=== PATIENT | male | born 1945 | race Caucasian/White ===

== ENCOUNTER 2016-11-14 05:56 | Inpatient (IN) | payer MEDICARE, OTHER ==
[2016-11-14] VITALS (13 sets, daily range): BP systolic 138–157; BP diastolic 82–100; PULSE 88–98; RESP 16–32; O2SAT 91–96
[~2016-11-14] VITALS: Ht 177.8 cm; Wt 107.9 kg
[~2016-11-14 05:56] MED LIST: CA C1TAB28 PO; CALC-27 PO; COCO1000 PO; FLAX100010 PO; MULT-36 PO; OMEG1CAP56 PO; UBID100T7 PO; VITA1CAP PO; VITA400C64 PO
--- NOTE | 2016-11-14 06:18 | ED.REPORT ---
HPI-General Illness Date of Service Nov 14, 2016 ED Provider: Tracy Rodrigez MD The patient is a 71 year old male with no pertinent medical history, who presents to the emergency department complaining of a cough that began 5 days ago. His cough has been "dry." He has also experienced shortness of breath, wheezing, and orthopnea (x3-4 days). He has been unable to sleep at night due to his breathing and needed to sleep upright last night. He has noticed exertional dyspnea over the last few weeks. He denies fever, chills, chest pain or lower extremity swelling. Nursing Notes Stated Complaint: COLD Chief Complaint: Respiratory Complaints Nursing Notes Reviewed: Yes Allergies: Coded Allergies: No Known Allergies (Unverified , 11/14/16) Scheduled Biotin (Biotin) 10 Mg Tablet 10 MG PO DAILY Cholecalciferol (Vitamin D3) (Vitamin D3) 3,000 Unit Tablet 3,000 UNIT PO DAILY Multivitamin (Multivitamins) 1 Each Capsule 1 EACH PO DAILY [place]-3 Fatty Acids/Fish Oil ([place] 3 1,000 mg Softgel) 1 Each Capsule 1 EACH PO DAILY Ubidecarenone (Coenzyme Q10) 100 Mg Tablet 100 MG PO DAILY Vitamin E (Dl,Tocopheryl Acet) (Vitamin E) 1,000 Unit Capsule 1,000 UNIT PO DAILY General Time Seen by MD: 06:12 Chief Complaint Cough Hx Obtained From: Patient Arrived By: Walk-in Sudden in Onset?: No Onset Occurred: 5 days ago Symptom Duration: Since onset Severity: Current: No pain currently Severity: Maximum: No pain Recent Healthcare: No recent doctor visit, No recent hospitalization Similar Sx Previous: No Past Medical History Past Medical History Denies Family History Noncontributory Smoking History Former Smoker Social History Other Social History: Good social support, , Local resident Ambulatory Status Independent Review of Systems Full Review of Systems Constitutional: Denies: Chills, Fever Respiratory: Reports: Non-productive cough, Shortness of breath, Wheezing Cardiovascular: Reports: Orthopnea, Denies: Chest pain Musculoskeletal: Denies: Extremity swelling Complete sys rev & neg: except as marked. Physical Exam Vital Signs Vital Signs Date Time Temp Pulse Resp B/P Pulse Ox O2 Delivery O2 Flow Rate FiO2 11/14/16 10:04 94 31 144/88 94 Room Air 11/14/16 09:32 93 22 139/82 94 Room Air 11/14/16 08:27 94 32 145/86 95 Room Air 11/14/16 08:15 97 93 Room Air 11/14/16 08:10 92 27 91 Room Air 11/14/16 07:19 93 16 92 11/14/16 06:01 36.2 96 20 156/100 96 Room Air Initial VS: Reviewed Head / Eyes: Atraumatic, Normocephalic, PERRL ENT: Mucous membranes moist, Conjunctiva normal, No scleral icterus Neck: Supple, Non-tender, Full range of motion Abdomen / GI: Soft, Non-tender, No guarding, No rebound, No distention Lymphatic: No lymphadenopathy Extremities: Vascular intact, Neuro intact, No tenderness Skin: Warm, Dry, No cyanosis Neurologic: Alert, Oriented, Nonfocal Psychiatric: Mood/affect normal, Behavior normal, Normal thought content General/Constitutional: Awake, Alert, Cooperative Respiratory / Chest: Breath sounds = bilat, No rales, No rhonchi Audible wheezing. Diffuse wheezing throughout, more prominent in his upper lung garcia. Cardiovascular: Heart rate NL, Regular rhythm Heart Sounds / Murmur: Positive: Systolic murmur present.. (IV/) Upper Ext Edema: Positive: Bilateral 1+ Interpretation & Diagnostics Lab Results Interpretation Result Diagram: 11/14/16 0720 11/14/16 0720 Test 11/14/16 07:20 11/14/16 09:20 White Blood Count 6.3th/mm3 (3.8-10.1) Red Blood Count 4.31mil/mm3 (4.40-5.80) Hemoglobin 13.0g/dL (13.8-17.2) Hematocrit 39.8% (41.0-50.0) Mean Corpuscular Volume 92.3fL (81-100) Mean Corpuscular Hemoglobin 30.2pg (27.0-35.0) Mean Corpuscular Hemoglobin Concent 32.7% (32.0-37.0) Red Cell Distribution Width 13.6% (12.3-15.4) Platelet Count 205bil/L (150-400) Neutrophils (%) (Auto) 73.0% (40-74) Lymphocytes (%) (Auto) 12.9% (14-46) Monocytes (%) (Auto) 11.8% (4-12) Eosinophils (%) (Auto) 1.9% (0-5) Basophils (%) (Auto) 0.2% (0-3) Sodium Level 137mEq/L (134-144) Potassium Level 4.3mEq/L (3.5-5.2) Chloride Level 102mEq/L (97-108) Carbon Dioxide Level 20mmol/L (18-29) Blood Urea Nitrogen 11mg/dL (8-27) Creatinine 0.77mg/dL (0.76-1.27) Estimat Glomerular Filtration Rate 106mL/min (>59) Glucose Level 113mg/dL (60-99) Calcium Level 9.8mg/dL (8.5-10.1) Total Bilirubin 1.0mg/dL (0.0-1.2) Aspartate Amino Transf (AST/SGOT) 20U/L (0-50) Alanine Aminotransferase (ALT/SGPT) 21U/L (0-44) Alkaline Phosphatase 60U/L (25-160) Troponin T < 0.010ug/L (0.0-0.011) Pro-B-Type Natriuretic Peptide 1157pg/mL (0-376) Total Protein 7.1g/dL (6.4-8.4) Albumin 4.3g/dL (3.4-5.0) Procalcitonin 0.07ng/mL (0.00-0.08) Hold [place] Top Tube Received (Received) Urine Color Yellow (YELLOW) Urine Appearance Clear (CLEAR,HAZY) Urine pH 6.0 (5.0-8.0) Urine Specific [place] 1.015 (1.003-1.035) Urine Protein Negativemg/dL (NEG,TRACE) Urine Glucose (UA) Negativemg/dL (NEGATIVE) Urine Ketones Negativemg/dL (NEGATIVE) Urine Occult Blood Trace (NEGATIVE) Urine Nitrite Negative (NEGATIVE) Urine Bilirubin Negative (NEGATIVE) Urine Urobilinogen Normalmg/dL (NORMAL) Urine Leukocyte Esterase Negative (NEGATIVE) Urine RBC 3-10/hpf (0-2) Urine WBC 0-5/hpf (0-5) Urine Epithelial Cells Occasional/hpf (NONE-MOD) Urine Crystals None seen (NONE SEEN) Urine Bacteria None/hpf (NONE-FEW) Urine Hyaline Casts None/lpf (NONE) Urine Granular Casts None seen (NONE SEEN) Urine Waxy Casts None seen (NONE SEEN) Urine Red Blood Cell Casts None seen (NONE SEEN) Urine White Blood Cell Casts None seen (NONE SEEN) Urine Mucus None seen (None Seen) Urine Trichomonas None seen (NONE SEEN) Urine Yeast None (NONE SEEN) Urinalysis Comment None Urine Culture Reflexed Not indicated ECG Interpretation ECG Interpretation: Sinus rhythm with a rate of 93 Incomplete LBBB Time: 07:03 Interpreted by: ED physician X-Ray Chest Interpretation Chest Xray Interpretation: IMPRESSION: Bilateral interstitial pneumonia suspected in the absence of prior exams for determination of chronicity. Dictated by: Preston Bone M.D. on 11/14/2016 at 8:18 Clinical exam and correlation is more consistent with heart failure. Interpretation / Wet Read by: Interpret - Radiologist Re-Eval/Medical Decision Med Decision/Clinical Course 71 yo man presents with increasing wheezes orthopnea and exertional dyspnea. Lab values chest x-ray and clinical exam almost consistent with congestive heart failure. This is a new diagnosis for him. No evidence of STEMI or ischemia at this time. Moderate hypoxia with significant symptoms will plan for hospital admission gentle diuresis and additional workup Source of Hx: Old records, Family Time of Eval: 08:30 Re-Evaluation/Progress Note: The patient was tachypneic in the high 20s, 91-92 on room air on rest. He walked around the nursing station and was 94-95 % while ambulating, still able to talk. Now sitting down still complaining of difficulty breathing and head pain. Time of Eval: 09:17 Re-Evaluation/Progress Note: Rechecked the patient. Discussed results, diagnosis, and plan for admission. All questions were addressed. Consultation : Referral / Consult Name: RommelSwapnataylor APARICIO Consulted With: Hospitalist Requested Call at: 09:20 Call Returned at: 10:13 Dredge Operator Supervisor: Will see patient, Agrees with eval, Agrees with plan, Accepts admit Counseled Regarding: Diagnosis, Lab results, Need for admission Discharge & Departure Primary Impression: Congestive heart failure Congestive heart failure type: unspecified congestive heart failure type Congestive heart failure chronicity: acute Qualified Code: I50.9 - Heart failure, unspecified Disposition: ADMITTED TO HOSPITAL Discharge Condition All VS Reviewed: Yes Condition: Stable Referrals: Kaitlin Conteh PA-C (PCP) Scribe Attestation Portions of this note were transcribed by Devika Roberto. I, Dr. Rodrigez personally performed the history, physical exam and medical decision-making; I reviewed and confirmed the accuracy of the information in the transcribed note. Signed by: Rony Luke, 11/14/2016 at 1015. copies to: Kaitlin Conteh PA-C, Shawna L MD Nov 14, 2016 06:18 Devika Roberto Nov 14, 2016 06:22
[2016-11-14] MEDS ORDERED: MethylprednisoLONE Sodium Succinate 62.5 mg/mL 2 mL Inj IVPUSH ONE (07:05)
[2016-11-14] MEDS ORDERED: Albuterol-Ipratropium 3 mL Inhalation Solution NEB ONE (07:05)
[2016-11-14 07:31] LABS: BASOPHILS % (AUTO) 0.2 % (0-3); EOSINOPHILS % (AUTO) 1.9 % (0-5); MONOCYTES % (AUTO) 11.8 % (4-12); Mean Corpuscular Hemoglobin 30.2 pg (27.0-35.0); Mean Corpuscular Volume 92.3 fL (81-100); Platelet Count 205 bil/L (150-400)
--- NOTE | 2016-11-14 08:21 | DRSVH ---
PROCEDURE: X-RAY CHEST, TWO VIEWS ([id number]) INDICATIONS: Cough/wheezing TECHNIQUE: 2 views of the chest were acquired. COMPARISON: None. FINDINGS: Surgical changes and devices: None. Lungs and pleura: No pleural effusions or pneumothorax. Bilateral interstitial prominence, lower lob e predominant, indeterminate for activity or chronicity but compatible with acute interstitial pneumo daniel as well as chronic interstitial lung disease. Mediastinum: Mediastinal contours are normal. There is slight prominence of the inferior right hilum which could represent lymphadenopathy. Heart size is normal. Bones and chest wall: No suspicious bony abnormalities. Soft tissues appear unremarkable. IMPRESSION: Bilateral interstitial pneumonia suspected in the absence of prior exams for determinatio n of chronicity. Dictated by: Preston Bone M.D. on 11/14/2016 at 8:18 Approved by: Preston Bone M.D. on 11/14/2016 at 8:20
[2016-11-14 08:29] LABS: TROPONIN T < 0.010 ug/L (0.0-0.011)
[2016-11-14] MEDS ORDERED: Furosemide 10 mg/mL 2 mL Inj IVPUSH ONE (08:35)
[2016-11-14 09:48] LABS: APPEARANCE,URINE CLEAR (CLEAR,HAZY); COLOR,URINE YELLOW (YELLOW); OCCULT BLOOD,URINE TRACE (NEGATIVE); UROBILINOGEN,URINE NORMAL (NORMAL)
[2016-11-14] MEDS ORDERED: CHOL3000 PO (09:52)
[2016-11-14] MEDS ORDERED: VITA-251 PO (09:52)
[2016-11-14] MEDS ORDERED: MULT1CAP33 PO (09:54)
[2016-11-14] MEDS ORDERED: BIOT10TA PO (09:54)
[2016-11-14] MEDS ORDERED: Alum-Mag Hydrox-Simeth 30 mL Suspension PO PRN ×2 (10:40→10:50)
[2016-11-14] MEDS ORDERED: Ondansetron 2 mg/mL 2 mL Inj IVPUSH PRN ×2 (10:40→10:50)
[2016-11-14] MEDS ORDERED: Polyethylene Glycol (PEG) 17 Gm Powder PO PRN (10:50)
[2016-11-14] MEDS ORDERED: Nitroglycerin 2% 1 Gm Ointment TOPICAL SCH (10:55)
--- NOTE | 2016-11-14 11:36 | NUR ---
admit patient arrived on unit from ER. pt is alert and oriented X4. Admit done in ER by Tami Santana. Pt has end expiratory Wheezes and stated that he has RAJAN. Pt has HEIDI but can not get CPAP brought in. CPOX in room for HS. IV lasix given patient has voided. Pt stated that he has no pain. Vs WNL. CHF hand book given.
[2016-11-14] MEDS: Sodium Chloride LOK Flush 10 mL Syringe IVFLUSH SCH ×2 (12:33→17:06)
[2016-11-14 14:56] LABS: Creatine Kinase 85 U/L (21-232); TROPONIN T < 0.010 ug/L (0.0-0.011)
--- NOTE | 2016-11-14 17:07 | DRSVH ---
[facility] [address] [place] [address] Echocardiogram Report Name: ANATOLY MIRELES BStudy Date : 11/14/2016 Height: 70 in Hospital Exam Location: [facility] Weight: 244 lb Gender: Male BSA: 2.3 m2 : 1945 Age: 71 yrs BP: 157/98 mmHg Reason For Study: Congestive Heart Failure Ordering Physician: [facility]erformed By: Vignesh Smith Referring Physician: EDDIE ESPINOZA Interpretation Summary 1) Mild concentric left ventricular hypertrophy with normal size, wall motion, and systolic function (EF 65-70%). 2) Mildly enlarged right ventricular with normal function. 3) Prolapse of the posterior mitral leaflet present. 4) Severe anteriorly directed mitral regurgitation present. 5) Mild to moderate tricuspid regurgitation present. 6) Severe pulmonary hypertension present, estimated systolic pulmonary pressure of 76mmHg. 7) Systemic hypertension present during the study (BP 157/98). 8) No prior Echo available for comparison. Procedure: A two-dimensional transthoracic echocardiogram with color flow and Doppler was performed. The study quality was technically adequate. There is no prior echocardiogram noted for this patient. The patient was in normal sinus rhythm during the exam. Left Ventricle: The left ventricle is normal in size. There is mild concentric left ventricular hypertrophy. The ejection fraction is estimated to be 65-70%. Left ventricular systolic function is normal. Left ventricular wall motion is normal. Assessment of diastolic parameters suggests a pseudonormalization pattern, consistent with elevated filling pressures. Right Ventricle: The right ventricle is mildly dilated. The right ventricular systolic function is normal. Atria: There is moderate biatrial enlargement. The interatrial septum is intact with no evidence for an atrial septal defect. Mitral Valve: Anterior MV leaflet is moderately calcified. Prolapse of the middle scallop of the posterior mitral leaflet. There is no mitral valve stenosis. There is severe mitral regurgitation. The mitral regurgitant jet is anteriorly directed, which is consistent with posterior leaflet pathology. Flow reversal noted in pulmonary veins consistent with significant mitral regurgitation. Aortic Valve: The aortic valve is normal in structure and function. There is no aortic valve stenosis. No aortic regurgitation is present. Tricuspid Valve: The tricuspid valve leaflets are thickened and/or calcified, but open well. There is mild to moderate tricuspid regurgitation. The right ventricular systolic pressure is estimated at 76 mmHg assuming a right atrial pressure of 8 mm Hg. Pulmonic Valve: The pulmonic valve is not well seen, but is grossly normal. There is a trace or physiologic amount of pulmonic regurgitation. Great Vessels: The aortic root is normal size. The dimensions of the ascending aorta are normal. The pulmonary artery is normal size. The IVC is dilated (diameter is greater than 2.1 cm) yet it collapses greater than 50% with a sniff. This suggests a right atrial pressure of 8 mm Hg. Pericardium/ Pleura There is no pericardial effusion. There is no pleural effusion. MMode/2D Measurements & Calculations LVIDd: 5.6 cm RA long axis LVOT diam LVIDs: 3.9 cm LA A2 area: 26.3 cm FS: 30.7 % LA A4 area: 29.7 cm RA area AoV Opening EPSS: 0.64 cm LA length (vol): 8.1 cm IVSd: 1.1 cm LA vol: 82.3 ml : 25.1 cm Ao root diam LVPWd: 1.2 cm LA vol index RA vol : 85.5 ml asc Aorta RA Diam: 3.2 cm IVC diam: 2.8 cm : 37.6 mm2 LV chan. diameter/BSA LV sys. diameter/BSA RVD1 (basal) RVD2 (mid) (cm/m^2): 2.5 (cm/m^2): 1.7 : 4.1 cm TAPSE: 2.2 cm Doppler Measurements & Calculations Ao V2 max MV E max jamie MV E/A: 2.0 TR max jamie : 110.2 cm/sec : 162.3 cm/sec Med Peak E' Jamie : 412.6 cm/sec Ao max PG MV A max jamie TR max PG : 4.9 mmHg : 80.6 cm/sec E/E' med: 27.0 : 68.1 mmHg Ao mean PG MV P1/2t: 40.0 msecLat Peak E' Jamie PA V2 max MVA(VTI): 1.8 cm : 66.3 cm/sec LVOT Max Jamie E/E' lat: 20.1 PA mean PG : 101.7 cm/sec MR ERO: 0.32 cm2 E/e' average: 23.6 : 0.96 mmHg PB(I,D): 3.3 cm PA Accel Time sev ratio : 0.07 sec MV V2 mean MV P1/2t max jamie Ao V2 mean LV V1 max PG : 105.1 cm/sec : 77.0 cm/sec MV mean PG Ao V2 VTI: 18.5 cm LV V1 VTI MVA(P1/2t): 5.5 cm2 : 18.1 cm MV V2 VTI: 33.9 cm PB(V,D): 3.1 cm2 MR flow rate PA V2 mean PB indexed to BSA : 46.4 cm/sec (cm^2/m^2): 1.5 : 152.8 cm3/sec MR PISA radius Reading Physician:05:06 PM
[2016-11-14] MEDS: Furosemide 10 mg/mL 2 mL Inj IVPUSH SCH (18:20)
--- NOTE | 2016-11-14 18:32 | NUR ---
SOB patient reported incresased SOB and chest tightness. Pt has audible wheezes. pagemaday. Administered 20mg IVP lasix. reassessed and pt stated that SOB decreased,MD ordered 2030 solumerol and NEBS.
[2016-11-14] MEDS: Albuterol-Ipratropium 3 mL Inhalation Solution NEB SCH (19:41)
[2016-11-14 20:08] LABS: TROPONIN T < 0.010 ug/L (0.0-0.011)
[2016-11-14] MEDS: MethylprednisoLONE Sodium Succinate 40 mg/mL Inj IVPUSH SCH (20:10)
[2016-11-14] MEDS: Nitroglycerin 2% 1 Gm Ointment TOPICAL SCH (20:11)
[2016-11-14 20:13] LABS: Creatine Kinase 93 U/L (21-232)
--- NOTE | 2016-11-14 20:49 | PCM.HPMED ---
Subjective Date of Service Nov 14, 2016 Primary Provider: Admitting Physician: Swapna Carney DO Primary Care Physician: Kaitlin Conteh PA-C Attending Physician: Swapna Carney DO Admit Status: From the Emergency Department Chief Complaint: Exertional dyspnea, apnea, wheezing History of Present Illness: 71-year-old white male with not much pertinent past medical history is presenting to the ER with chief complaint of wheezing, exertional dyspnea, orthopnea. He states that his symptoms started 5 days ago he has been coughing has been feeling increasingly fatigued symptoms were more noticeable on Monday. He states that he never had to spend overnight time in hospital. He did have a viral infection or flu October 25. He states that he did not receive a flu shot this year. 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 Her his PA has treated this infection with Tamiflu. He states that he has no trouble with his blood pressures. Patient denies current chills, fevers, headaches, chest pain, edema. He does feel better when he bends forward he is more comfortable. In the ER if the x-ray showed diffuse interstitial bilateral pneumonia type of findings. White count is normal, pro-calcitonin is normal. 20 mg Lasix, Solu-Medrol 125 mg IV, albuterol were given he is unsure if this his treatments have helped him. Troponin was negative EKG was within normal limits. The saturating at 89-90% on room air. Patient states he smoked until 1982 smoked a pack per day for 10-15 years. His is a current smoker but he denies having secondhand smoke exposure as she goes out to smoke. Patient is admitted to the [facility] team for CHF exacerbation that is acute and a half unknown type. Allergies Coded Allergies: No Known Allergies (Unverified , 11/14/16) PMH Restless leg syndrome, GERD, melanoma status post 2 excisions, obstructive sleep apnea sleep apnea on CPAP for 8 years Surgical History Skin surgeries for melanoma 2 Social History Hx Alcohol Use: Yes ("A glass of two of wine every 2-3 days") Hx Substance Use: No Smoking Status: Former Smoker Living Arrangement: with Family Exam Vital Signs Vital Sign - Last Date Time Temp Pulse Resp B/P Pulse Ox O2 Delivery O2 Flow Rate FiO2 11/14/16 10:04 94 31 144/88 94 Room Air 11/14/16 06:01 36.2 Exam Gen.: No acute distress HEENT: Normocephalic, atraumatic Heart: 2+ mitral systolic murmur with radiation to axilla Lungs positive for diffuse wheezing, no crackles Abdomen obese, nontender, nondistended normal bowel sounds are present extremities: Negative for edema Neuro: No focal deficits Psych: Negative negative for anxiety Lab and Diagnostics Result Diagram: 11/14/16 0720 11/14/16 0720 X-Rays, CTs and MRIs [facility] Diagnostic [place] [address] Patient Name: ANATOLY MIRELES MR#: [id number] [place] [facility] [place] Ordering Phys: MANNIE MELLO MD Date of Service: 11/14/16 0608 PROCEDURE: X-RAY CHEST, TWO VIEWS ([id number]) INDICATIONS: Cough/wheezing TECHNIQUE: 2 views of the chest were acquired. COMPARISON: None. FINDINGS: Surgical changes and devices: None. Lungs and pleura: No pleural effusions or pneumothorax. Bilateral interstitial prominence, lower lobe predominant, indeterminate for activity or chronicity but compatible with acute interstitial pneumonia as well as chronic interstitial lung disease. Mediastinum: Mediastinal contours are normal. There is slight prominence of the inferior right hilum which could represent lymphadenopathy. Heart size is normal. Bones and chest wall: No suspicious bony abnormalities. Soft tissues appear unremarkable. IMPRESSION: Bilateral interstitial pneumonia suspected in the absence of prior exams for determination of chronicity. Dictated by: Preston Bone M.D. on 11/14/2016 at 8:18 Approved by: Preston Bone M.D. on 11/14/2016 at 8:20 Assessment & Plan This is a 71-year-old male without any pertinent unremarkable past medical history currently pressing thing with hypoxia and dyspnea likely secondary to heart failure versus pulmonary hypertension versus chronic interstitial pneumonitis versus pneumonia Acute diagnosis #1 hypoxia secondary to heart failure versus pulmonary hypertension versus chronic interstitial pneumonitis versus pneumonia -- Telemonitoring -- trend cardiac enzymes - Echocardiogram -- Discussed case with cardiology Dr. Price will see patient after the echocardiogram is read -- Morphine, oxygen, nitroglycerin bid paste every 6 hours -- Start patient on lisinopril, metoprolol, aspirin. -- A.m. lipid panel, A1c -- Continue home CPAP -- Consider CTA PE protocol if there is no improvement in symptoms tomorrow a.m. -- Lasix 20 mg IV twice a day Acute diagnosis #2 concern for interstitial pneumonitis -- Solu-Medrol 40 mg twice a day -- Albuterol, DuoNeb treatments -- Urine strep, urine Legionella tests are ordered Chronic diagnosis: HEIDI continue home CPAP GERD: H2 mg DVT prophylaxis: Enoxaparin 40 mg subcutaneous daily Diet heart healthy IV fluids none Disposition: Pending improvement in symptoms, cardiology recommendations GI Prophylaxis: H2 mg Resuscitation Status: CPR: Attempt Resuscitation Swapna Carney DO Nov 14, 2016 10:24
[2016-11-15] VITALS (14 sets, daily range): BP systolic 91–121; BP diastolic 53–76; PULSE 69–95; RESP 18–32; O2SAT 92–97
[2016-11-15] MEDS: Sodium Chloride LOK Flush 10 mL Syringe IVFLUSH SCH ×3 (00:35→17:20)
[2016-11-15] MEDS: Albuterol-Ipratropium 3 mL Inhalation Solution NEB SCH ×4 (02:14→20:59)
[2016-11-15] MEDS: Nitroglycerin 2% 1 Gm Ointment TOPICAL SCH ×4 (02:28→21:14)
--- NOTE | 2016-11-15 03:41 | NUR ---
SOB/Nitro paste Pt continues to have dyspnea with exertion; less when laying in bed. nebs given by RT Q6hrs for wheezing; pt reported relief of SOB after neb tx. IV lasix given per previous shift. Pt independently using the urinal in the bathroom to void; gait steady. SPO2 in low 90s on RA. pt didn't bring his own CPAP here. Tylenol given for headache-effective. BP went down to 90s-100/50s-60s. Dr. Huff was notified and ordered to hold Nitro paste for 02:30. pt denies chest pain. Tele SR in the 90s with IVCD per telecommunications project manager.
[2016-11-15 06:44] LABS: BASOPHILS % (AUTO) 0.1 % (0-3); EOSINOPHILS % (AUTO) 0 % (0-5); MONOCYTES % (AUTO) 9.5 % (4-12); Mean Corpuscular Hemoglobin 30.1 pg (27.0-35.0); Mean Corpuscular Volume 91.7 fL (81-100); NEUTROPHILS % (AUTO) 82.9 % (40-74); Platelet Count 214 bil/L (150-400)
[2016-11-15] MEDS: Furosemide 10 mg/mL 2 mL Inj IVPUSH SCH (08:07)
[2016-11-15] MEDS: MethylprednisoLONE Sodium Succinate 40 mg/mL Inj IVPUSH SCH ×2 (08:09→21:14)
[2016-11-15] MEDS: Albuterol 2.5 mg/3 mL Inhalation Solution NEB PRN ×2 (11:10→17:04)
[2016-11-15] MEDS ORDERED: Furosemide 10 mg/mL 4 mL Inj IVPUSH ONE ×2 (11:50→13:35)
--- NOTE | 2016-11-15 11:53 | PCM.CHPCAR ---
Consult Subjective Date of service Nov 15, 2016 Date of admit Nov 14, 2016 at 10:20 Provider Requesting Consult Primary Care Physician Primary Care Physician: Kaitlin Conteh PA-C Chief Complaint dyspnea History of Present Illness 71 yo obese M h/o untreated HTN admitted with dyspnea. Patient states that he has been healthy all his life and wasn't on any medications. About a month ago , he started having dyspnea on exertion that gradually progressed to point that he could lift heavy objects last week. He finally decided to come to the [facility] ER for evaluation. Denies chest pain, palpitations, weight gain, lightheadedness, syncope, fevers, chills, nausea, or vomiting. Since getting hospitalized yesterday, he got IV furosemide and had good urine output. He feels better today and is not on supplement oxygen anymore. Review of Systems Review of Systems per HPI and otherwise unremarkable PMH Past Medical History # HTN: diagnosed many years ago but not on medication # Obesity # Former smoker: quit 1981 or 1982 Scheduled Biotin (Biotin) 10 Mg Tablet 10 MG PO DAILY (Reported) Cholecalciferol (Vitamin D3) (Vitamin D3) 3,000 Unit Tablet 3,000 UNIT PO DAILY (Reported) Multivitamin (Multivitamins) 1 Each Capsule 1 EACH PO DAILY (Reported) [place]-3 Fatty Acids/Fish Oil ([place] 3 1,000 mg Softgel) 1 Each Capsule 1 EACH PO DAILY (Reported) Ubidecarenone (Coenzyme Q10) 100 Mg Tablet 100 MG PO DAILY (Reported) Vitamin E (Dl,Tocopheryl Acet) (Vitamin E) 1,000 Unit Capsule 1,000 UNIT PO DAILY (Reported) Discontinued Medications Ca Cmb No.1/Vit D3/B-6/FA/B12 (Vitamin D3 1,000 Unit Tablet) 1 Each Tablet 1 EACH PO DAILY (Reported) Calcium & Magnesium Carbonate (Antacid Gelatin Caplet) 1 Each Tablet 1 EACH PO DAILY (Reported) Coconut Oil (Coconut Oil) 1,000 Mg Capsule 1,000 MG PO DAILY (Reported) Flaxseed (Flaxseed Oil) 1,000 Mg Capsule 1,000 MG PO DAILY (Reported) Multivitamin (Daily Multiple Vitamin) 1 Each Tablet 1 EACH PO DAILY (Reported) Vitamin B Complex (Vitamin B Complex) 1 Each Capsule 1 EACH PO DAILY (Reported) Vitamin E Mixed (Vitamin E) 400 Unit Capsule 400 UNIT PO DAILY (Reported) Current Inpatient Medications Current Medications Al Hydrox/Mg Hydrox/Simethicone 30 ml Q6 PRN PO; Start 11/14/16 at 10:40; Stop 11/14/16 at 10:59; Status DC Ondansetron HCl Dose range: 4 mg to 8 mg Q4H PRN IVPUSH; Start 11/14/16 at 10:40 ; Stop 11/14/16 at 10:59; Status DC Acetaminophen 975 mg Q6H PRN PO Last administered on 11/14/16 20:18; Admin Dose 650 MG; Start 11/14/16 at 10:40 Enoxaparin Sodium 40 mg DAILY SUBQ Last administered on 11/15/16 08:14; Admin Dose 40 MG; Start 11/14/16 at 10:50 Sodium Chloride 10 ml Q8 IVFLUSH Last administered on 11/15/16 08:08; Admin Dose 10 ML; Start 11/14/16 at 10:50 Famotidine 20 mg BID PO Last administered on 11/15/16 08:12; Admin Dose 20 MG; Start 11/14/16 at 10:50 Al Hydrox/Mg Hydrox/Simethicone 30 ml Q6H PRN PO; Start 11/14/16 at 10:50 Ondansetron HCl 4 to 8 mg Q4H PRN IVPUSH; Start 11/14/16 at 10:50 Senna 17.2 mg BID PRN PO; Start 11/14/16 at 10:50 Polyethylene Glycol 17 gm DAILY PRN PO; Start 11/14/16 at 10:50 Aspirin 325 mg DAILY PO; Start 11/14/16 at 10:50; Stop 11/14/16 at 10:59; Status DC Morphine Sulfate 1 mg Q4H PRN IV; Start 11/14/16 at 10:50 Nitroglycerin 0.5 inch DAILY TOPICAL Last administered on 11/14/16 12:33; Admin Dose 0.5 INCH; Start 11/14/16 at 10:55; Stop 11/14/16 at 18:10; Status DC Lisinopril 2.5 mg DAILY PO; Start 11/14/16 at 10:55; Stop 11/14/16 at 11:32; Status DC Metoprolol Tartrate 12.5 mg BID PO Last administered on 11/15/16 08:12; Admin Dose 12.5 MG; Start 11/14/16 at 10:55 Aspirin 325 mg DAILY PO Last administered on 11/15/16 08:12; Admin Dose 325 MG; Start 11/14/16 at 10:59 Furosemide 20 mg BIDWM IVPUSH Last administered on 11/15/16 08:07; Admin Dose 20 MG; Start 11/14/16 at 17:30 Lisinopril 5 mg DAILY PO; Start 11/15/16 at 08:30; Stop 11/15/16 at 08:30; Status DC Lisinopril 10 mg DAILY PO; Start 11/15/16 at 08:30; Stop 11/15/16 at 08:30; Status DC Lisinopril 15 mg DAILY PO Last administered on 11/15/16 08:11; Admin Dose 15 MG ; Start 11/15/16 at 08:30 Albuterol 2.5 mg Q4H PRN NEB Last administered on 11/15/16 11:10; Admin Dose 2.5 MG; Start 11/14/16 at 17:45 Albuterol/ Ipratropium 3 ml Q6 NEB Last administered on 11/15/16 07:50; Admin Dose 3 ML; Start 11/14/16 at 20:30 Methylprednisolone Sodium Succinate 40 mg BID IVPUSH Last administered on 08:09; Admin Dose 40 MG; Start 11/14/16 at 20:30 Nitroglycerin 0.5 inch Q6 TOPICAL Last administered on 11/15/16 08:13; Admin Dose 0.5 INCH; Start 11/14/16 at 20:30 Allergies: Coded Allergies: No Known Allergies (Unverified , 11/14/16) Family History Family History no family history of early heart disease. Social History Hx Alcohol Use: Yes ("A glass of two of wine every 2-3 days")Hx Substance Use: No Smoking Status: Former Smoker Living Arrangement: with Family Exam Vital Signs Vital Sign - Last Date Time Temp Pulse Resp B/P Pulse Ox O2 Delivery O2 Flow Rate FiO2 11/15/16 11:10 83 20 97 Room Air 11/15/16 09:25 36.7 113/70 Intake and Output 11/14/16 11/14/16 11/15/16 Cumulative From/Thru 15:00 23:00 07:00 11/14/16 06:01 - 11/15/16 05:03 Intake Total 150 ml 1020 ml 1170 ml Output Total 1200 ml 1175 ml 2375 ml Balance -1050 ml -155 ml -1205 ml Intake Oral 150 ml 1020 ml 1170 ml Output Urine Total 1200 ml 1175 ml 2375 ml # Bowel Movements 0 0 General appearance: No apparent distress, well-nourished, pleasant, cooperative HEET: Normocephalic atraumatic, no scleral icterus, tongue midline, mucous membranes moist Neck: supple, no carotid bruits Cardiovascular: RRR, normal S1 and normal S2, 3/6 holosystolic murmur radiating to axilla, PMI nondisplaced, JVP 10 cm H20, 1+ peripheral edema b/l Respiratory: Fair aeration, diffusely coarse Abdomen: Soft, nontender, nondistended, + bowel sounds Neuro: Alert, no facial droop, tongue midline Psych: appropriate affect Skin: no rashes on face, neck, and lower extremities Lab and Diagnostics Labs troponin negative ProBNP 1157 LDL 103 Result Diagram: 11/15/16 0605 11/15/16 0605 X-Rays, CTs and MRIs Echo 11/14/2016: 1) Mild concentric left ventricular hypertrophy with normal size, wall motion, and systolic function (EF 65-70%). 2) Mildly enlarged right ventricular with normal function. 3) Prolapse of the posterior mitral leaflet present. 4) Severe anteriorly directed mitral regurgitation present. 5) Mild to moderate tricuspid regurgitation present. 6) Severe pulmonary hypertension present, estimated systolic pulmonary pressure of 76mmHg. 7) Systemic hypertension present during the study (BP 157/98). 8) No prior Echo available for comparison. Assessment & Plan Assessment 71 yo obese M admitted with dyspnea from diastolic heart failure caused by severe mitral regurgitation. # Dyspnea: suspect dyspnea is due to severe mitral regurgitation caused by posterior mitral leaflet prolapse. LVEF is normal but patient does have severe pulmonary hypertension. He also has systemic hypertension. Our short term goal is diurese the patient and control his BP to make him feel better, which he does already. Our penitentiary goal would be to do mitral valve repair surgery to fix his mitral regurgitation, for which he would meet criteria and has a class 1 indication. I educated the patient about his condition. Plan as discussed in great detail with the patient is as as below: - Diurese to be net negative 2L. Dose furosemide accordingly to reach goal - Continue lisinopril 15mg daily for BP control - Patient needs ANALISA and R/LHC and carotid US as outpatient as part of mitral valve repair pre-op assessment # RSV: noted on cultures. Suspect this is subacute as patient did have viral illness about 4 weeks ago. Recommend supportive care. # HTN: BP management as above Thank you for the interesting consultation. Patient should f/u with cardiology as outpatient in 2-4 weeks. VTE Mechanical Devices: Intermittant Pneumatic CD Resuscitation Status: CPR: Attempt Resuscitation Sugey Price MD Nov 15, 2016 11:53
--- NOTE | 2016-11-15 16:20 | NUR ---
Social Work Note - Initial Assessment: D/A: See Initial Assessment. The Pt is a 71 y/o male that was admitted for new onset CHF, hypoxia. The Pts PCP is SOTERO Conteh and his primary insurance is Medicare with a [employer] supplement. EMR reviewed, the Pt lives independently in a one story home with his SO on [address]. Advanced Directive requested. The Pt continues to drive, has a CPAP at home, and has no HH/SNF history. Cardiology consult completed, recommending follow-up with Cardiology as an OtPt in 2-4 weeks. The Pt denies any needs at this time, SW to follow if needs arise. P: The Pt likely to discharge home when medically stable with SO providing POV transportation. Cardiology consult completed, recommending follow-up with Cardiology as an OtPt in 2-4 weeks. The Pt denies any needs at this time, SW to follow if needs arise. SILVIA Angel MSW Addendum: 11/15/16 at 1620 by ANGELICA FOLEY Amended: Links added.
[2016-11-15] MEDS: Furosemide 10 mg/mL 4 mL Inj IVPUSH SCH (17:20)
--- NOTE | 2016-11-15 21:43 | PCM.PNMED ---
Subjective Date of Service Nov 15, 2016 Subjective Patient continues to be mildly dyspneic but states he is feeling much better today. RSV positive and PCR yesterday and currently under isolation. He did not bring his CPAP to the hospital but states he is asking his to bring it to the hospital today. His Echo showed pulm HTN and severe mitral regurgitation yesterday. He feels neb treatments are helping. He was seen by cardiology this morning Exam Vital Signs Vital Sign - Last Date Time Temp Pulse Resp B/P Pulse Ox O2 Delivery O2 Flow Rate FiO2 11/15/16 04:59 37.0 89 32 118/75 94 Room Air Intake and Output 11/14/16 11/14/16 11/15/16 Cumulative From/Thru 15:00 23:00 07:00 11/14/16 06:01 - 11/15/16 05:03 Intake Total 150 ml 1020 ml 1170 ml Output Total 1200 ml 1175 ml 2375 ml Balance -1050 ml -155 ml -1205 ml Intake Oral 150 ml 1020 ml 1170 ml Output Urine Total 1200 ml 1175 ml 2375 ml # Bowel Movements 0 0 Exam GEneral : No acute distress Eyes: [place] conjunctivae. No ptosis, PERRL Neck: No masses, trachea midline, no thyromegaly, negative for JVD, Vascular : negative hepatojugular reflux Lungs: Improved lung sounds, improved wheezing CV: RRR, mitral regurgitation murmur with radiation to axilla GI: Nondistended MSK: no digital cyanosis Skin: Warm and dry. Psych: A&O X3, with approprate affect IVs and Medications IV Fluids None Medications Reviewed: Medications were reviewed in detail Lab and Diagnostics Laboratory Tests Test 11/15/16 05:05 11/15/16 06:05 Urine Legionella pneumophilia Ag Negative (Negative) White Blood Count 7.8th/mm3 (3.8-10.1) Red Blood Count 4.32mil/mm3 (4.40-5.80) Hemoglobin 13.0g/dL (13.8-17.2) Hematocrit 39.6% (41.0-50.0) Mean Corpuscular Volume 91.7fL (81-100) Mean Corpuscular Hemoglobin 30.1pg (27.0-35.0) Mean Corpuscular Hemoglobin Concent 32.8% (32.0-37.0) Red Cell Distribution Width 13.2% (12.3-15.4) Platelet Count 214bil/L (150-400) Neutrophils (%) (Auto) 82.9% (40-74) Lymphocytes (%) (Auto) 7.4% (14-46) Monocytes (%) (Auto) 9.5% (4-12) Eosinophils (%) (Auto) 0% (0-5) Basophils (%) (Auto) 0.1% (0-3) Sodium Level 141mEq/L (134-144) Potassium Level 4.3mEq/L (3.5-5.2) Chloride Level 103mEq/L (97-108) Carbon Dioxide Level 24mmol/L (18-29) Blood Urea Nitrogen 20mg/dL (8-27) Creatinine 0.94mg/dL (0.76-1.27) Estimat Glomerular Filtration Rate 84mL/min (>59) Glucose Level 141mg/dL (60-99) Calcium Level 10.5mg/dL (8.5-10.1) Total Bilirubin 0.7mg/dL (0.0-1.2) Aspartate Amino Transf (AST/SGOT) 13U/L (0-50) Alanine Aminotransferase (ALT/SGPT) 18U/L (0-44) Alkaline Phosphatase 60U/L (25-160) Total Protein 6.7g/dL (6.4-8.4) Albumin 4.3g/dL (3.4-5.0) Triglycerides Level 85mg/dL (0-149) Cholesterol Level 160mg/dL (100-199) LDL Cholesterol, Calculated 103.000mg/dL (0-99) VLDL Cholesterol 17.000mg/dL HDL Cholesterol 40mg/dL (>39) Cholesterol/HDL Ratio 4.00 (0.0-4.4) Microbiology 11/14/16 Adenovirus DNA (PCR) - Final, Complete Not Detected 11/14/16 Coronavirus 229E PCR - Final, Complete Not Detected 11/14/16 Coronavirus HKU1 PCR - Final, Complete Not Detected 11/14/16 Coronavirus NL63 PCR - Final, Complete Not Detected 11/14/16 Coronavirus OC43 PCR - Final, Complete Not Detected 11/14/16 Influenza Type A (PCR) - Final, Complete Not Detected 11/14/16 Influenza Type B (PCR) - Final, Complete Not Detected 11/14/16 Human Metapneumovirus (PCR) (JIM) - Final, Complete Not Detected 11/14/16 Rhinovirus (PCR)(JIM) - Final, Complete Not Detected 11/14/16 Parainfluenza Virus Type 1 (PCR) - Final, Complete Not Detected 11/14/16 Parainfluenza Virus Type 2 (PCR) - Final, Complete Not Detected 11/14/16 Parainfluenza Virus Type 3 (PCR) - Final, Complete Not Detected 11/14/16 Parainfluenza Virus Type 4 (NAAT) - Final, Complete Not Detected 11/14/16 Respiratory Syncytial Virus (PCR)FL - Final, Complete Respiratory Syncytial Virus 11/14/16 Chlamydia pneumoniae (PCR) - Final, Complete Not Detected 11/14/16 Mycoplasma pneumoniae DNA Detection - Final, Complete 11/15/16 Streptococcus pneumoniae Ag Screen - Final, Complete Result Diagram: 11/14/16 0720 11/14/16 0720 X-Rays, CTs and MRIs [facility] Diagnostic [place] [address] Patient Name: ANATOLY MIRELES MR#: [id number] Location: [facility] [place] Ordering Phys: MANNIE MELLO MD Date of Service: 11/14/16 0608 PROCEDURE: X-RAY CHEST, TWO VIEWS ([id number]) INDICATIONS: Cough/wheezing TECHNIQUE: 2 views of the chest were acquired. COMPARISON: None. FINDINGS: Surgical changes and devices: None. Lungs and pleura: No pleural effusions or pneumothorax. Bilateral interstitial prominence, lower lobe predominant, indeterminate for activity or chronicity but compatible with acute interstitial pneumonia as well as chronic interstitial lung disease. Mediastinum: Mediastinal contours are normal. There is slight prominence of the inferior right hilum which could represent lymphadenopathy. Heart size is normal. Bones and chest wall: No suspicious bony abnormalities. Soft tissues appear unremarkable. IMPRESSION: Bilateral interstitial pneumonia suspected in the absence of prior exams for determination of chronicity. Dictated by: Preston Bone M.D. on 11/14/2016 at 8:18 Approved by: Preston Bone M.D. on 11/14/2016 at 8:[address] [facility] Diagnostic [place] [address] Patient Name: ANATOLY MIRELES MR#: [id number] Location: [facility] [place] Ordering Phys: Swapna Espinoza DO Date of Service: 11/14/16 [address] [facility] [address] [place] [address] Echocardiogram Report Name: ANATOLY MIRELES BStudy Date : 11/14/2016 Height: 70 in Hospital Exam Location: [facility] Weight: 244 lb Gender: Male BSA: 2.3 m2 : 1945 Age: 71 yrs BP: 157/98 mmHg Reason For Study: Congestive Heart Failure Ordering Phys[facility]formed By: Vignesh Smith Referring Physician: SWAPNA ESPINOZA Interpretation Summary 1) Mild concentric left ventricular hypertrophy with normal size, wall motion, and systolic function (EF 65-70%). 2) Mildly enlarged right ventricular with normal function. 3) Prolapse of the posterior mitral leaflet present. 4) Severe anteriorly directed mitral regurgitation present. 5) Mild to moderate tricuspid regurgitation present. 6) Severe pulmonary hypertension present, estimated systolic pulmonary pressure of 76mmHg. 7) Systemic hypertension present during the study (BP 157/98). 8) No prior Echo available for comparison. Procedure: A two-dimensional transthoracic echocardiogram with color flow and Doppler was performed. The study quality was technically adequate. There is no prior echocardiogram noted for this patient. The patient was in normal sinus rhythm during the exam. Left Ventricle: The left ventricle is normal in size. There is mild concentric left ventricular hypertrophy. The ejection fraction is estimated to be 65-70%. Left ventricular systolic function is normal. Left ventricular wall motion is normal. Assessment of diastolic parameters suggests a pseudonormalization pattern, consistent with elevated filling pressures. Right Ventricle: The right ventricle is mildly dilated. The right ventricular systolic function is normal. Atria: There is moderate biatrial enlargement. The interatrial septum is intact with no evidence for an atrial septal defect. Mitral Valve: Anterior MV leaflet is moderately calcified. Prolapse of the middle scallop of the posterior mitral leaflet. There is no mitral valve stenosis. There is severe mitral regurgitation. The mitral regurgitant jet is anteriorly directed, which is consistent with posterior leaflet pathology. Flow reversal noted in pulmonary veins consistent with significant mitral regurgitation. Aortic Valve: The aortic valve is normal in structure and function. There is no aortic valve stenosis. No aortic regurgitation is present. Tricuspid Valve: The tricuspid valve leaflets are thickened and/or calcified, but open well. There is mild to moderate tricuspid regurgitation. The right ventricular systolic pressure is estimated at 76 mmHg assuming a right atrial pressure of 8 mm Hg. Pulmonic Valve: The pulmonic valve is not well seen, but is grossly normal. There is a trace or physiologic amount of pulmonic regurgitation. Great Vessels: The aortic root is normal size. The dimensions of the ascending aorta are normal. The pulmonary artery is normal size. The IVC is dilated (diameter is greater than 2.1 cm) yet it collapses greater than 50% with a sniff. This suggests a right atrial pressure of 8 mm Hg. Pericardium/ Pleura There is no pericardial effusion. There is no pleural effusion. MMode/2D Measurements & Calculations LVIDd: 5.6 cm RA long axis LVOT diam LVIDs: 3.9 cm LA A2 area: 26.3 cm FS: 30.7 % LA A4 area: 29.7 cm RA area AoV Opening EPSS: 0.64 cm LA length (vol): 8.1 cm IVSd: 1.1 cm LA vol: 82.3 ml : 25.1 cm Ao root diam LVPWd: 1.2 cm LA vol index RA vol : 85.5 ml asc Aorta RA Diam: 3.2 cm IVC diam: 2.8 cm : 37.6 mm2 LV chan. diameter/BSA LV sys. diameter/BSA RVD1 (basal) RVD2 (mid) (cm/m^2): 2.5 (cm/m^2): 1.7 : 4.1 cm TAPSE: 2.2 cm Doppler Measurements & Calculations Ao V2 max MV E max jamie MV E/A: 2.0 TR max jamie : 110.2 cm/sec : 162.3 cm/sec Med Peak E' Jamie : 412.6 cm/sec Ao max PG MV A max jamie TR max PG : 4.9 mmHg : 80.6 cm/sec E/E' med: 27.0 : 68.1 mmHg Ao mean PG MV P1/2t: 40.0 msecLat Peak E' Jamie PA V2 max MVA(VTI): 1.8 cm : 66.3 cm/sec LVOT Max Jamie E/E' lat: 20.1 PA mean PG : 101.7 cm/sec MR ERO: 0.32 cm2 E/e' average: 23.6 : 0.96 mmHg PB(I,D): 3.3 cm PA Accel Time sev ratio : 0.07 sec MV V2 mean MV P1/2t max jamie Ao V2 mean LV V1 max PG : 105.1 cm/sec : 77.0 cm/sec MV mean PG Ao V2 VTI: 18.5 cm LV V1 VTI MVA(P1/2t): 5.5 cm2 : 18.1 cm MV V2 VTI: 33.9 cm PB(V,D): 3.1 cm2 MR flow rate PA V2 mean PB indexed to BSA : 46.4 cm/sec (cm^2/m^2): 1.5 : 152.8 cm3/sec MR PISA radius Reading Physician:05:06 PM Assessment & Plan This is a 71-year-old male without any pertinent unremarkable past medical history currently pressing thing with hypoxia and dyspnea likely secondary to heart failure versus pulmonary hypertension versus chronic interstitial pneumonitis versus pneumonia. He also has RSV infection getting treated appropriately with steroids and supportive care. Acute diagnosis #1 hypoxia secondary to heart failure secondary to severe mitral regurgitation, pulmonary hypertension -- Telemonitoring -- trend cardiac enzymes: Negative overnight - Echocardiogram: Red by Dr. Pace showed concern for severe pulmonary hypertension, severe mitral regurgitation -- Discussed case with cardiology Dr. Price will see patient after the echocardiogram is read: Dr. Babb has seen the patient and encouraged aggressive diuresis: We appreciate the recommendations -- Morphine, oxygen, nitroglycerin bid paste every 6 hours -- Start patient on lisinopril, metoprolol, aspirin. -- A.m. lipid panel, A1c -- Continue home CPAP -- Consider CTA PE protocol if there is no improvement in symptoms tomorrow a.m. -- Increase Lasix to IV 40 mg twice a day. Dr. Warren has given one-time dose of 40 mg IV Acute diagnosis #2 concern for interstitial pneumonitis -- Solu-Medrol 40 mg twice a day -- Albuterol, DuoNeb treatments -- Urine strep, urine Legionella tests are ordered: Negative -- Respiratory panel positive for RSV: Continue supportive care Chronic diagnosis: HEIDI continue home CPAP GERD: H2 mg DVT prophylaxis: Enoxaparin 40 mg subcutaneous daily Diet heart healthy IV fluids none Code status: Full code Alternate Decision maker: Disposition: Pending improvement in symptoms, cardiology recommendations GI Prophylaxis: H2 mg VTE Mechanical Devices: Intermittant Pneumatic CD Resuscitation Status: CPR: Attempt Resuscitation Swapna Espinoza DO Nov 15, 2016 05:37
[2016-11-16] VITALS (12 sets, daily range): BP systolic 121–133; BP diastolic 73–88; PULSE 80–95; RESP 20–28; O2SAT 93–97
[2016-11-16] MEDS: Sodium Chloride LOK Flush 10 mL Syringe IVFLUSH SCH ×3 (02:06→17:30)
[2016-11-16] MEDS: Nitroglycerin 2% 1 Gm Ointment TOPICAL SCH ×4 (02:06→20:53)
[2016-11-16] MEDS: Albuterol-Ipratropium 3 mL Inhalation Solution NEB SCH ×4 (02:07→20:36)
--- NOTE | 2016-11-16 06:29 | NUR ---
respiratory Pt continuous to have intermittent SOB relieved by scheduled nebs. able to get some sleep with his CPAP on. SpO2 between 92-95% on RA even when sleeping. independent in the room; gait steady.
[2016-11-16 07:17] LABS: BASOPHILS % (AUTO) 0.1 % (0-3); EOSINOPHILS % (AUTO) 0 % (0-5); MONOCYTES % (AUTO) 7.7 % (4-12); Mean Corpuscular Hemoglobin 30.2 pg (27.0-35.0); Mean Corpuscular Volume 93.2 fL (81-100); NEUTROPHILS % (AUTO) 85.9 % (40-74); Platelet Count 244 bil/L (150-400)
[2016-11-16] MEDS: Furosemide 10 mg/mL 4 mL Inj IVPUSH SCH ×2 (08:46→17:30)
[2016-11-16] MEDS: MethylprednisoLONE Sodium Succinate 40 mg/mL Inj IVPUSH SCH ×2 (08:46→20:48)
--- NOTE | 2016-11-16 11:45 | NUR ---
8 Beats Vtach RN notified of 8 beats of vtach by teletype technician. Pt asymptomatic. Md notified. Will continue to monitor.
[2016-11-16] MEDS: Albuterol 2.5 mg/3 mL Inhalation Solution NEB PRN (13:09)
--- NOTE | 2016-11-16 16:46 | PCM.PNCARD ---
Subjective Date of service Nov 16, 2016 Chief Complaint dyspnea History of Present Illness 71 yo obese M h/o untreated HTN admitted with dyspnea. Patient states that he has been healthy all his life and wasn't on any medications. About a month ago , he started having dyspnea on exertion that gradually progressed to point that he could lift heavy objects last week. He finally decided to come to the [facility] ER for evaluation. Denies chest pain, palpitations, weight gain, lightheadedness, syncope, fevers, chills, nausea, or vomiting. Since getting hospitalized yesterday, he got IV furosemide and had good urine output. He feels better today and is not on supplement oxygen anymore. Subjective: Patient feels better from bleeding standpoint but not back to his baseline. He states he 60% better. He had good urine output yesterday. Problem list: # HTN: diagnosed many years ago but not on medication # Obesity # Former smoker: quit 1981 or 1982 Exam Vital Signs Vital Sign - Last Date Time Temp Pulse Resp B/P Pulse Ox O2 Delivery O2 Flow Rate FiO2 11/16/16 16:13 80 20 96 Room Air 11/16/16 13:58 36.9 130/75 Intake and Output 11/15/16 11/15/16 11/16/16 Cumulative From/Thru 15:00 23:00 07:00 11/14/16 06:01 - 11/16/16 06:08 Intake Total 575 ml 2150 ml 800 ml 4695 ml Output Total 1500 ml 1750 ml 575 ml 6200 ml Balance -925 ml 400 ml 225 ml -1505 ml Intake Oral 575 ml 2150 ml 800 ml 4695 ml Output Urine Total 1500 ml 1750 ml 575 ml 6200 ml # Bowel Movements 1 1 General appearance: No apparent distress, well-nourished, pleasant, cooperative HEET: Normocephalic atraumatic, no scleral icterus, tongue midline, mucous membranes moist Neck: supple, no carotid bruits Cardiovascular: RRR, normal S1 and normal S2, 3/6 holosystolic murmur radiating to axilla, PMI nondisplaced, JVP 10 cm H20, trace peripheral edema b/l Respiratory: Fair aeration, diffusely coarse but improved from yesterday Abdomen: Soft, nontender, nondistended, + bowel sounds Neuro: Alert, no facial droop, tongue midline Lab and Diagnostics Result Diagram: 11/16/16 0713 11/16/16 0713 X-Rays, CTs and MRIs Echo 11/14/2016: 1) Mild concentric left ventricular hypertrophy with normal size, wall motion, and systolic function (EF 65-70%). 2) Mildly enlarged right ventricular with normal function. 3) Prolapse of the posterior mitral leaflet present. 4) Severe anteriorly directed mitral regurgitation present. 5) Mild to moderate tricuspid regurgitation present. 6) Severe pulmonary hypertension present, estimated systolic pulmonary pressure of 76mmHg. 7) Systemic hypertension present during the study (BP 157/98). 8) No prior Echo available for comparison. Assessment & Plan Assessment 71 yo obese M admitted with dyspnea from diastolic heart failure caused by severe mitral regurgitation. # Dyspnea: suspect dyspnea is due to severe mitral regurgitation caused by posterior mitral leaflet prolapse. LVEF is normal but patient does have severe pulmonary hypertension. He also has systemic hypertension. Our short term goal is to diurese the patient and control his BP to make him feel better. With good BP control and IV furosemide, patient has felt better and is off oxygen now. 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 I educated the patient about his condition. Plan as discussed in great detail with the patient is as as below: - Diurese to be net negative 2L. Dose furosemide accordingly to reach goal - Continue lisinopril 15mg daily for BP control - Patient needs ANALISA and R/LHC and carotid US as outpatient as part of mitral valve repair pre-op assessment # RSV: noted on cultures. Suspect this is subacute as patient did have viral illness about 4 weeks ago. Recommend supportive care. # HTN: BP management as above Thank you for the interesting consultation. Patient should f/u with cardiology on 12/01/2016 Problems: GI Prophylaxis: H2 mg VTE Mechanical Devices: Intermittant Pneumatic CD Resuscitation Status: CPR: Attempt Resuscitation Sugey Price MD Nov 16, 2016 16:46
--- NOTE | 2016-11-16 21:05 | PCM.PNMED ---
Subjective Date of Service Nov 16, 2016 Subjective Patient is seen and examined. He is feeling much better he exceeded his a goal of 2 L by diurese for couple days now. He states that his breathing has much improved. He is feeling a little anxious about his upcoming mitral valve repair surgery that Dr. Babb has discussed with him. He states that he appreciates the good care doctors at providing at this hospital. His shortness of breath has improved he has no chest pain has no swelling in legs. Exam Vital Signs Vital Sign - Last Date Time Temp Pulse Resp B/P Pulse Ox O2 Delivery O2 Flow Rate FiO2 11/16/16 17:35 36.6 89 24 127/73 95 Room Air Intake and Output 11/15/16 11/15/16 11/16/16 Cumulative From/Thru 15:00 23:00 07:00 11/14/16 06:01 - 11/16/16 06:08 Intake Total 575 ml 2150 ml 800 ml 4695 ml Output Total 1500 ml 1750 ml 575 ml 6200 ml Balance -925 ml 400 ml 225 ml -1505 ml Intake Oral 575 ml 2150 ml 800 ml 4695 ml Output Urine Total 1500 ml 1750 ml 575 ml 6200 ml # Bowel Movements 1 1 Exam Gen.: No acute distress HEENT: Normocephalic, atraumatic Heart: Regular rate and rhythm. 2+ mitral murmur with radiation to axilla Neck negative for JVD Vascular negative for hepatojugular reflux Extremities negative for edema Abdomen obese nontender Psych positive for mild anxiety Neuro no focal deficits IVs and Medications IV Fluids None Medications Reviewed: Medications were reviewed in detail Lab and Diagnostics Result Diagram: 11/16/1671211/16/1613 X-Rays, CTs and MRIs [facility] Diagnostic Imaging Department [place], [place] [id number] Patient Name: ANATOLY MIRELES MR#: [id number] Location: [facility] [place] Ordering Phys: MANNIE MELLO MD Date of Service: 11/14/16 0608 PROCEDURE: X-RAY CHEST, TWO VIEWS ([id number]) INDICATIONS: Cough/wheezing TECHNIQUE: 2 views of the chest were acquired. COMPARISON: None. FINDINGS: Surgical changes and devices: None. Lungs and pleura: No pleural effusions or pneumothorax. Bilateral interstitial prominence, lower lobe predominant, indeterminate for activity or chronicity but compatible with acute interstitial pneumonia as well as chronic interstitial lung disease. Mediastinum: Mediastinal contours are normal. There is slight prominence of the inferior right hilum which could represent lymphadenopathy. Heart size is normal. Bones and chest wall: No suspicious bony abnormalities. Soft tissues appear unremarkable. IMPRESSION: Bilateral interstitial pneumonia suspected in the absence of prior exams for determination of chronicity. Dictated by: Preston Bone M.D. on 11/14/2016 at 8:18 Approved by: Preston Bone M.D. on 11/14/2016 at 8:20 Cardiac Echo Impressions [facility] Diagnostic [place] [address] Patient Name: ANATOLY MIRELES MR#: [id number] Location: [facility] [place] Ordering Phys: Swapna Espinoza DO Date of Service: 11/14/[address] [place] [id number] Echocardiogram Report Name: ANATOLY MIRELES BStudy Date : 11/14/2016 Height: 70 in Hospital Exam Location: [facility] Weight: 244 lb Gender: Male BSA: 2.3 m2 : 1945 Age: 71 yrs BP: 157/98 mmHg Reason For Study: Congestive Heart Failure Ordering Physician: HOSPITALIST SVHPerformed By: Vignesh Smith Referring Physician: SWAPNA ESPINOZA Interpretation Summary 1) Mild concentric left ventricular hypertrophy with normal size, wall motion, and systolic function (EF 65-70%). 2) Mildly enlarged right ventricular with normal function. 3) Prolapse of the posterior mitral leaflet present. 4) Severe anteriorly directed mitral regurgitation present. 5) Mild to moderate tricuspid regurgitation present. 6) Severe pulmonary hypertension present, estimated systolic pulmonary pressure of 76mmHg. 7) Systemic hypertension present during the study (BP 157/98). 8) No prior Echo available for comparison. Procedure: A two-dimensional transthoracic echocardiogram with color flow and Doppler was performed. The study quality was technically adequate. There is no prior echocardiogram noted for this patient. The patient was in normal sinus rhythm during the exam. Left Ventricle: The left ventricle is normal in size. There is mild concentric left ventricular hypertrophy. The ejection fraction is estimated to be 65-70%. Left ventricular systolic function is normal. Left ventricular wall motion is normal. Assessment of diastolic parameters suggests a pseudonormalization pattern, consistent with elevated filling pressures. Right Ventricle: The right ventricle is mildly dilated. The right ventricular systolic function is normal. Atria: There is moderate biatrial enlargement. The interatrial septum is intact with no evidence for an atrial septal defect. Mitral Valve: Anterior MV leaflet is moderately calcified. Prolapse of the middle scallop of the posterior mitral leaflet. There is no mitral valve stenosis. There is severe mitral regurgitation. The mitral regurgitant jet is anteriorly directed, which is consistent with posterior leaflet pathology. Flow reversal noted in pulmonary veins consistent with significant mitral regurgitation. Aortic Valve: The aortic valve is normal in structure and function. There is no aortic valve stenosis. No aortic regurgitation is present. Tricuspid Valve: The tricuspid valve leaflets are thickened and/or calcified, but open well. There is mild to moderate tricuspid regurgitation. The right ventricular systolic pressure is estimated at 76 mmHg assuming a right atrial pressure of 8 mm Hg. Pulmonic Valve: The pulmonic valve is not well seen, but is grossly normal. There is a trace or physiologic amount of pulmonic regurgitation. Great Vessels: The aortic root is normal size. The dimensions of the ascending aorta are normal. The pulmonary artery is normal size. The IVC is dilated (diameter is greater than 2.1 cm) yet it collapses greater than 50% with a sniff. This suggests a right atrial pressure of 8 mm Hg. Pericardium/ Pleura There is no pericardial effusion. There is no pleural effusion. MMode/2D Measurements & Calculations LVIDd: 5.6 cm RA long axis LVOT diam LVIDs: 3.9 cm LA A2 area: 26.3 cm FS: 30.7 % LA A4 area: 29.7 cm RA area AoV Opening EPSS: 0.64 cm LA length (vol): 8.1 cm IVSd: 1.1 cm LA vol: 82.3 ml : 25.1 cm Ao root diam LVPWd: 1.2 cm LA vol index RA vol : 85.5 ml asc Aorta RA Diam: 3.2 cm IVC diam: 2.8 cm : 37.6 mm2 LV chan. diameter/BSA LV sys. diameter/BSA RVD1 (basal) RVD2 (mid) (cm/m^2): 2.5 (cm/m^2): 1.7 : 4.1 cm TAPSE: 2.2 cm Doppler Measurements & Calculations Ao V2 max MV E max jamie MV E/A: 2.0 TR max jamie : 110.2 cm/sec : 162.3 cm/sec Med Peak E' Jamie : 412.6 cm/sec Ao max PG MV A max jamie TR max PG : 4.9 mmHg : 80.6 cm/sec E/E' med: 27.0 : 68.1 mmHg Ao mean PG MV P1/2t: 40.0 msecLat Peak E' Jamie PA V2 max MVA(VTI): 1.8 cm : 66.3 cm/sec LVOT Max Jamie E/E' lat: 20.1 PA mean PG : 101.7 cm/sec MR ERO: 0.32 cm2 E/e' average: 23.6 : 0.96 mmHg PB(I,D): 3.3 cm PA Accel Time sev ratio : 0.07 sec MV V2 mean MV P1/2t max jamie Ao V2 mean LV V1 max PG : 105.1 cm/sec : 77.0 cm/sec MV mean PG Ao V2 VTI: 18.5 cm LV V1 VTI MVA(P1/2t): 5.5 cm2 : 18.1 cm MV V2 VTI: 33.9 cm PB(V,D): 3.1 cm2 MR flow rate PA V2 mean PB indexed to BSA : 46.4 cm/sec (cm^2/m^2): 1.5 : 152.8 cm3/sec MR PISA radius Reading Physician:05:06 PM Assessment & Plan This is a 71-year-old male without any pertinent unremarkable past medical history currently pressing thing with hypoxia and dyspnea likely secondary to heart failure versus pulmonary hypertension versus chronic interstitial pneumonitis versus pneumonia. He also has RSV infection getting treated appropriately with steroids and supportive care. Acute diagnosis #1 hypoxia secondary to heart failure secondary to severe mitral regurgitation, pulmonary hypertension -- Telemonitoring -- trend cardiac enzymes: Negative overnight - Echocardiogram: Red by Dr. Pace showed concern for severe pulmonary hypertension, severe mitral regurgitation -- Discussed case with cardiology Dr. Price will see patient after the echocardiogram is read: Dr. Babb has seen the patient and encouraged aggressive diuresis to 2 L daily: We appreciate the recommendations -- Morphine, oxygen, nitroglycerin bid paste every 6 hours -- Started patient on lisinopril, metoprolol, aspirin: Dr. Babb recommends the patient states on 15 mg of lisinopril -- A.m. lipid panel within normal, A1c= 5.2 -- Continue home CPAP -- Decrease Lasix to IV 20 mg twice a day -- Dr. Babb recommends the patient follows up for a ANALISA and the carotid ultrasound as outpatient prior to his mitral valve repair Acute diagnosis #2 concern for interstitial pneumonitis -- Solu-Medrol 40 mg twice a day -- Albuterol, DuoNeb treatments -- Urine strep, urine Legionella tests are ordered: Negative -- Respiratory panel positive for RSV: Continue supportive care Chronic diagnosis: HEIDI continue home CPAP GERD: H2 mg DVT prophylaxis: Enoxaparin 40 mg subcutaneous daily Diet heart healthy IV fluids none Code status: Full code Alternate Decision maker: Disposition: Pending improvement in symptoms, cardiology recommendations GI Prophylaxis: H2 mg VTE Prophylaxis: Sub-Q Enoxaparin VTE Mechanical Devices: Intermittant Pneumatic CD Resuscitation Status: CPR: Attempt Resuscitation Swapna Espinoza DO Nov 16, 2016 17:48
[2016-11-17] VITALS (12 sets, daily range): BP systolic 114–122; BP diastolic 70–78; PULSE 74–93; RESP 18–20; O2SAT 92–97
[2016-11-17] MEDS: Sodium Chloride LOK Flush 10 mL Syringe IVFLUSH SCH ×4 (02:30→21:25)
[2016-11-17] MEDS: Nitroglycerin 2% 1 Gm Ointment TOPICAL SCH ×3 (02:30→14:41)
[2016-11-17] MEDS: Albuterol-Ipratropium 3 mL Inhalation Solution NEB SCH ×4 (03:56→20:31)
--- NOTE | 2016-11-17 04:46 | NUR ---
Anxiety partially due to current medical status, however after further clarification from MD concerning proposed valvular repair and statistical success rates was considerably relieved. Initially "I thought the 5-10% of complications led to " "after listening more closely understood these problems could be fixed by additional repairs to valve." Appears to have slept well with CPAP on RA sat's 96%.
[2016-11-17] MEDS ORDERED: Furosemide 10 mg/mL 4 mL Inj IVPUSH SCH (08:00)
[2016-11-17 08:21] LABS: Mean Corpuscular Hemoglobin 29.5 pg (27.0-35.0); Mean Corpuscular Volume 92.5 fL (81-100)
[2016-11-17] MEDS: MethylprednisoLONE Sodium Succinate 40 mg/mL Inj IVPUSH SCH (08:27)
--- NOTE | 2016-11-17 12:01 | NUR ---
Sinus Rhythm IVCD Per equipment monitor phototypesetting Tele Sinus [address] Carney and aware. Patient having lunch at bed side and denies any sign and symptoms of cardiac or respiratory distress.
--- NOTE | 2016-11-17 14:20 | NUR ---
Mentation Patient is alert and oriented X3. Able to make needs known. Denies pain or discomfort. No sign and symptoms of cardiac or respiratory distress noted. Denies shortness of breath or difficulty breathing. Dr Carney aware that patient is asking if going home today. Stable mood and stable vital signs. Heart healthy diet and meals at bed side after set up with out any difficulty swallowing. Denies GI discomfort or pain. Last BM this morning per patient. Independent ambulation with out any difficulty. Call light with in reach and uses appropriately. Continuous droplet precautions r/t positive RSV. Continue to monitor pain, Vital signs, and safety.
--- NOTE | 2016-11-17 15:54 | PCM.PNCARD ---
Subjective Date of service Nov 17, 2016 Chief Complaint dyspnea History of Present Illness 71 yo obese M h/o untreated HTN admitted with dyspnea. Patient states that he has been healthy all his life and wasn't on any medications. About a month ago , he started having dyspnea on exertion that gradually progressed to point that he could lift heavy objects last week. He finally decided to come to the [facility] ER for evaluation. Denies chest pain, palpitations, weight gain, lightheadedness, syncope, fevers, chills, nausea, or vomiting. Since getting hospitalized yesterday, he got IV furosemide and had good urine output. He feels better today and is not on supplement oxygen anymore. Subjective: Patient feels better from bleeding standpoint but not back to his baseline. He states he 60% better. He had good urine output yesterday. Problem list: # HTN: diagnosed many years ago but not on medication # Obesity # Former smoker: quit 1981 or 1982 Exam Vital Signs Vital Sign - Last Date Time Temp Pulse Resp B/P Pulse Ox O2 Delivery O2 Flow Rate FiO2 11/17/16 14:50 80 18 92 Room Air 11/17/16 13:32 36.7 114/70 Intake and Output 11/16/16 11/16/16 11/17/16 Cumulative From/Thru 15:00 23:00 07:00 11/14/16 06:01 - 11/17/16 06:33 Intake Total 1300 ml 0 ml 5995 ml Output Total 2550 ml 2250 ml 27097 ml Balance -1250 ml -2250 ml -5005 ml Intake Oral 1300 ml 0 ml 5995 ml Output Urine Total 2550 ml 2250 ml 24471 ml # Bowel Movements 0 1 General appearance: No apparent distress, well-nourished, pleasant, cooperative HEET: Normocephalic atraumatic, no scleral icterus, tongue midline, mucous membranes moist Neck: supple, no carotid bruits Cardiovascular: RRR, normal S1 and normal S2, 3/6 holosystolic murmur radiating to axilla, PMI nondisplaced, JVP 9 cm H20, jie peripheral edema b/l Respiratory: Good aeration, diffusely coarse but much improved from admission Abdomen: Soft, nontender, nondistended, + bowel sounds Neuro: Alert, no facial droop, tongue midline Lab and Diagnostics Result Diagram: 11/17/16 0535 11/17/16 0535 X-Rays, CTs and MRIs Echo 11/14/2016: 1) Mild concentric left ventricular hypertrophy with normal size, wall motion, and systolic function (EF 65-70%). 2) Mildly enlarged right ventricular with normal function. 3) Prolapse of the posterior mitral leaflet present. 4) Severe anteriorly directed mitral regurgitation present. 5) Mild to moderate tricuspid regurgitation present. 6) Severe pulmonary hypertension present, estimated systolic pulmonary pressure of 76mmHg. 7) Systemic hypertension present during the study (BP 157/98). 8) No prior Echo available for comparison. Assessment & Plan Assessment 71 yo obese M admitted with dyspnea from diastolic heart failure caused by severe mitral regurgitation. # Dyspnea: suspect dyspnea is due to severe mitral regurgitation caused by posterior mitral leaflet prolapse. LVEF is normal but patient does have severe pulmonary hypertension. He also has systemic hypertension, which is being well managed now. Our short term goal is to diurese the patient and control his BP to make him feel better. With good BP control and IV furosemide, patient has felt better and is off oxygen now. Our nursing home goal would be to do mitral valve repair surgery to fix his symptomatic severe mitral regurgitation, for which he would meet criteria and has a class 1 indication. I educated the patient about his condition. Plan as discussed in great detail with the patient is as as below: - Diurese to be net negative 1L. Switch from IV furosemide to furosemide 40mg daily tomorrow - Switch lisinopril from 15mg daily to 10mg bid for BP control. Goal BP < 120/ 80 - Patient needs ANALISA and R/LHC and carotid US as outpatient as part of mitral valve repair pre-op assessment # RSV: noted on cultures. Suspect this is subacute as patient did have viral illness about 4 weeks ago. Recommend supportive care. # HTN: BP management as above Thank you for the interesting consultation. Patient should f/u with cardiology on 12/01/2016 Problems: GI Prophylaxis: H2 mg VTE Prophylaxis: Sub-Q Enoxaparin VTE Mechanical Devices: Intermittant Pneumatic CD Resuscitation Status: CPR: Attempt Resuscitation Sugey Price MD Nov 17, 2016 15:54
[2016-11-17] MEDS ORDERED: Codeine-guaiFENesin 5 mL Syrup PO PRN (19:25)
[2016-11-17] MEDS ORDERED: Codeine-guaiFENesin 10 mL Syrup PO PRN (19:48)
[2016-11-17] MEDS: Fluticasone 0.05% 15 Spray/2 Gm 16 Gm Nasal Spray NASAL SCH (21:24)
--- NOTE | 2016-11-17 22:05 | DRSVH ---
PROCEDURE: X-RAY CHEST, TWO VIEWS ([id number]) INDICATIONS: cough, CHF TECHNIQUE: 2 views of the chest were acquired. COMPARISON: [facility], CR, XR CHEST 2VW, 11/14/2016, 6:42. FINDINGS: Surgical changes and devices: None. Lungs and pleura: No pleural effusions or pneumothorax. There is decreased mild pulmonary edema. N o focal consolidation. Mediastinum: Mediastinal contours are unchanged. Heart size is within normal limits. Bones and chest wall: No suspicious bony abnormalities. Soft tissues appear unremarkable. IMPRESSION: 1. Decreased mild pulmonary edema. 2. No focal consolidation. Dictated by: David Burks M.D. on 11/17/2016 at 22:01 Approved by: David Burks M.D. on 11/17/2016 at 22:03
--- NOTE | 2016-11-17 23:40 | PCM.PNMED ---
Subjective Date of Service Nov 17, 2016 Subjective Patient is seen and examined. He states that he is feeling much better and wanting to go home Exam Vital Signs Vital Sign - Last Date Time Temp Pulse Resp B/P Pulse Ox O2 Delivery O2 Flow Rate FiO2 11/17/16 21:41 36.9 79 20 121/78 97 CPAP Intake and Output 11/16/16 11/16/16 11/17/16 Cumulative From/Thru 15:00 23:00 07:00 11/14/16 06:01 - 11/17/16 06:33 Intake Total 1300 ml 0 ml 5995 ml Output Total 2550 ml 2250 ml 88041 ml Balance -1250 ml -2250 ml -5005 ml Intake Oral 1300 ml 0 ml 5995 ml Output Urine Total 2550 ml 2250 ml 45424 ml # Bowel Movements 0 1 Exam Gen.: No acute distress HEENT: Normocephalic/atraumatic Heart: Mitral murmur radiation to axilla, regular rate and rhythm Lungs crackles and wheezes at present Abdomen obese nontender nondistended Extremities negative for edema Psychiatric negative for anxiety Neurological no focal deficits Neck negative for JVD Lab and Diagnostics Result Diagram: 11/17/16 0535 11/17/16 0535 X-Rays, CTs and MRIs [facility] Diagnostic Imaging Department [place], [place] [id number] Patient Name: ANATOLY MIRELES MR#: [id number] [place] [facility] [place]ing Phys: MANNIE MELLO MD Date of Service: 11/14/16 0608 PROCEDURE: X-RAY CHEST, TWO VIEWS ([id number]) INDICATIONS: Cough/wheezing TECHNIQUE: 2 views of the chest were acquired. COMPARISON: None. FINDINGS: Surgical changes and devices: None. Lungs and pleura: No pleural effusions or pneumothorax. Bilateral interstitial prominence, lower lobe predominant, indeterminate for activity or chronicity but compatible with acute interstitial pneumonia as well as chronic interstitial lung disease. Mediastinum: Mediastinal contours are normal. There is slight prominence of the inferior right hilum which could represent lymphadenopathy. Heart size is normal. Bones and chest wall: No suspicious bony abnormalities. Soft tissues appear unremarkable. IMPRESSION: Bilateral interstitial pneumonia suspected in the absence of prior exams for determination of chronicity. Dictated by: Preston Bone M.D. on 11/14/2016 at 8:18 Approved by: Preston Bone M.D. on 11/14/2016 at 8:20 Cardiac Echo Impressions [facility] Diagnostic Imaging Department [place], [place] [id number] Patient Name: ANATOLY MIRELES MR#: [id number] Location: [facility] [place] Ordering Phys: Swapna Espinoza DO Date of Service: 11/14/16 [facility] [address] [place] [address] Echocardiogram Report Name: ANATOLY MIRELES BStudy Date : 11/14/2016 Height: 70 in Hospital Exam Location: [facility] Weight: 244 lb Gender: Male BSA: 2.3 m2 : 1945 Age: 71 yrs BP: 157/98 mmHg Reason For Study: Congestive Heart Failure Ordering Physician: HOSPITALIST SVHPerformed By: Vignesh Smith Referring Physician: SWAPNA ESPINOZA Interpretation Summary 1) Mild concentric left ventricular hypertrophy with normal size, wall motion, and systolic function (EF 65-70%). 2) Mildly enlarged right ventricular with normal function. 3) Prolapse of the posterior mitral leaflet present. 4) Severe anteriorly directed mitral regurgitation present. 5) Mild to moderate tricuspid regurgitation present. 6) Severe pulmonary hypertension present, estimated systolic pulmonary pressure of 76mmHg. 7) Systemic hypertension present during the study (BP 157/98). 8) No prior Echo available for comparison. Procedure: A two-dimensional transthoracic echocardiogram with color flow and Doppler was performed. The study quality was technically adequate. There is no prior echocardiogram noted for this patient. The patient was in normal sinus rhythm during the exam. Left Ventricle: The left ventricle is normal in size. There is mild concentric left ventricular hypertrophy. The ejection fraction is estimated to be 65-70%. Left ventricular systolic function is normal. Left ventricular wall motion is normal. Assessment of diastolic parameters suggests a pseudonormalization pattern, consistent with elevated filling pressures. Right Ventricle: The right ventricle is mildly dilated. The right ventricular systolic function is normal. Atria: There is moderate biatrial enlargement. The interatrial septum is intact with no evidence for an atrial septal defect. Mitral Valve: Anterior MV leaflet is moderately calcified. Prolapse of the middle scallop of the posterior mitral leaflet. There is no mitral valve stenosis. There is severe mitral regurgitation. The mitral regurgitant jet is anteriorly directed, which is consistent with posterior leaflet pathology. Flow reversal noted in pulmonary veins consistent with significant mitral regurgitation. Aortic Valve: The aortic valve is normal in structure and function. There is no aortic valve stenosis. No aortic regurgitation is present. Tricuspid Valve: The tricuspid valve leaflets are thickened and/or calcified, but open well. There is mild to moderate tricuspid regurgitation. The right ventricular systolic pressure is estimated at 76 mmHg assuming a right atrial pressure of 8 mm Hg. Pulmonic Valve: The pulmonic valve is not well seen, but is grossly normal. There is a trace or physiologic amount of pulmonic regurgitation. Great Vessels: The aortic root is normal size. The dimensions of the ascending aorta are normal. The pulmonary artery is normal size. The IVC is dilated (diameter is greater than 2.1 cm) yet it collapses greater than 50% with a sniff. This suggests a right atrial pressure of 8 mm Hg. Pericardium/ Pleura There is no pericardial effusion. There is no pleural effusion. MMode/2D Measurements & Calculations LVIDd: 5.6 cm RA long axis LVOT diam LVIDs: 3.9 cm LA A2 area: 26.3 cm FS: 30.7 % LA A4 area: 29.7 cm RA area AoV Opening EPSS: 0.64 cm LA length (vol): 8.1 cm IVSd: 1.1 cm LA vol: 82.3 ml : 25.1 cm Ao root diam LVPWd: 1.2 cm LA vol index RA vol : 85.5 ml asc Aorta RA Diam: 3.2 cm IVC diam: 2.8 cm : 37.6 mm2 LV chan. diameter/BSA LV sys. diameter/BSA RVD1 (basal) RVD2 (mid) (cm/m^2): 2.5 (cm/m^2): 1.7 : 4.1 cm TAPSE: 2.2 cm Doppler Measurements & Calculations Ao V2 max MV E max jamie MV E/A: 2.0 TR max jamie : 110.2 cm/sec : 162.3 cm/sec Med Peak E' Jamie : 412.6 cm/sec Ao max PG MV A max jamie TR max PG : 4.9 mmHg : 80.6 cm/sec E/E' med: 27.0 : 68.1 mmHg Ao mean PG MV P1/2t: 40.0 msecLat Peak E' Jamie PA V2 max MVA(VTI): 1.8 cm : 66.3 cm/sec LVOT Max Jamie E/E' lat: 20.1 PA mean PG : 101.7 cm/sec MR ERO: 0.32 cm2 E/e' average: 23.6 : 0.96 mmHg PB(I,D): 3.3 cm PA Accel Time sev ratio : 0.07 sec MV V2 mean MV P1/2t max jamie Ao V2 mean LV V1 max PG : 105.1 cm/sec : 77.0 cm/sec MV mean PG Ao V2 VTI: 18.5 cm LV V1 VTI MVA(P1/2t): 5.5 cm2 : 18.1 cm MV V2 VTI: 33.9 cm PB(V,D): 3.1 cm2 MR flow rate PA V2 mean PB indexed to BSA : 46.4 cm/sec (cm^2/m^2): 1.5 : 152.8 cm3/sec MR DAVID felder Reading Physician:05:06 PM Assessment & Plan This is a 71-year-old male without any pertinent unremarkable past medical history currently pressing thing with hypoxia and dyspnea likely secondary to heart failure versus pulmonary hypertension versus chronic interstitial pneumonitis versus pneumonia. He also has RSV infection getting treated appropriately with steroids and supportive care. Acute diagnosis #1 hypoxia secondary to heart failure secondary to severe mitral regurgitation, pulmonary hypertension -- Telemonitoring -- trend cardiac enzymes: Negative overnight - Echocardiogram: Red by Dr. Pace showed concern for severe pulmonary hypertension, severe mitral regurgitation -- Discussed case with cardiology Dr. Price will see patient after the echocardiogram is read: Dr. Babb has seen the patient and encouraged aggressive diuresis to 2 L daily: We appreciate the recommendations -- Morphine, oxygen, nitroglycerin bid paste every 6 hours -- Started patient on lisinopril, metoprolol, aspirin: Dr. Babb recommends the patient states on 10 mg lisinopril by mouth twice a day -- A.m. lipid panel within normal, A1c= 5.2 -- Continue home CPAP -- Discontinue IV Lasix, start Lasix 40 mg by mouth tomorrow per cardiology recommendation -- Dr. Babb recommends the patient follows up for a ANALISA and the carotid ultrasound as outpatient prior to his mitral valve repair -- Cardiology Recs"- Diurese to be net negative 1L. Switch from IV furosemide to furosemide 40mg daily tomorrow - Switch lisinopril from 15mg daily to 10mg bid for BP control. Goal BP < 120/ 80 - Patient needs ANALISA and R/LHC and carotid US as outpatient as part of mitral valve repair pre-op assessment" Acute diagnosis #2 concern for interstitial pneumonitis -- Solu-Medrol 40 mg twice a day: Discontinue today, patient is given Tessalon Perles, Robitussin-AC for cough -- Albuterol, DuoNeb treatments -- Urine strep, urine Legionella tests are ordered: Negative -- Respiratory panel positive for RSV: Continue supportive care Chronic diagnosis: HEIDI continue home CPAP GERD: H2 mg DVT prophylaxis: Enoxaparin 40 mg subcutaneous daily Diet heart healthy IV fluids none Code status: Full code Alternate Decision maker: Disposition: Pending improvement in symptoms, cardiology recommendations GI Prophylaxis: H2 mg VTE Prophylaxis: Sub-Q Enoxaparin VTE Mechanical Devices: Intermittant Pneumatic CD Resuscitation Status: CPR: Attempt Resuscitation Swapna Espinoza DO Nov 17, 2016 23:40
[2016-11-18] VITALS (7 sets, daily range): BP systolic 115–133; BP diastolic 78–91; PULSE 73–94; RESP 18–20; O2SAT 95–97
[2016-11-18] MEDS: Albuterol-Ipratropium 3 mL Inhalation Solution NEB SCH ×2 (03:02→09:22)
[2016-11-18 06:39] LABS: BASOPHILS % (AUTO) 0.2 % (0-3); EOSINOPHILS % (AUTO) 0.8 % (0-5); Mean Corpuscular Hemoglobin 30.3 pg (27.0-35.0); Mean Corpuscular Volume 92.6 fL (81-100); NEUTROPHILS % (AUTO) 67.5 % (40-74); Platelet Count 256 bil/L (150-400)
[2016-11-18] MEDS: Fluticasone 0.05% 15 Spray/2 Gm 16 Gm Nasal Spray NASAL SCH (08:45)
[2016-11-18] MEDS: Sodium Chloride LOK Flush 10 mL Syringe IVFLUSH SCH (08:45)
[2016-11-18] MEDS ORDERED: Fluticasone-Salmeterol 100-50 Inhaler INHALATION SCH (10:15)
--- NOTE | 2016-11-18 11:14 | DRSVH ---
PROCEDURE: CT CHEST WITHOUT CONTRAST ([id number]) INDICATIONS: wheezing, dyspnea TECHNIQUE: Noncontrast 5 mm thick sections acquired from the pulmonary apices to the posterior costophrenic angl es. 7 mm thick coronal and sagittal MIP reformats were then acquired. For radiation dose reduction, the following was used: automated exposure control, adjustment of mA and/or kV according to patient size. COMPARISON: [facility], CR, XR CHEST 2VW, 11/17/2016, 20:09. FINDINGS: Image quality: Excellent. Lungs and pleura: No acute air space opacities mild dependent bibasilar atelectasis is present. 14 m m diameter nodular density within the left lung base posteriorly is present. 14 mm diameter subpleura l nodule within the right lung base posteriorly.. No pleural effusions or pneumothorax. Central and peripheral airways are patent and normal in caliber. Mediastinum: Heart size is normal. No pericardial effusion. No mediastinal adenopathy by size crit eria. Thoracic aorta and central pulmonary arteries are normal in size. Esophagus is normal in esther alireza. No hiatal hernia. Bones and chest wall: No suspicious bony lesions. No vertebral body compression fractures. No axil warner or supraclavicular adenopathy by size criteria. Thyroid gland is within normal limits. Abdomen: Visualized portions of the upper abdomen demonstrates a 30 mm diameter low-density focus wi thin the medial segment left hepatic lobe superiorly, with Hounsfield units of 40. IMPRESSION: 1. No acute process. 2. Bibasilar pulmonary nodules measuring 14 mm; followup is recommended as below. Secondary to locati on, these lesions would not be amenable to percutaneous biopsy. 3. Indeterminate low-density focus within the left hepatic lobe, which could be initially assessed wi th ultrasound, if clinically indicated. Fleischner Society criteria for SOLID lung nodule followup. Nodule size (mm)Low-risk patientHigh-risk patient<6 (single or multiple)No routine followup.Optional CT at 12 months. 6-8 (single or multiple)CT at 6-12 months, then optional CT at 18-24 mo.CT at 6-12 m onths, then CT at 18-24 months. >8 (single)CT, PET-CT, or biopsy at 3 months. Same as for low-risk p ts. >8 (multiple)CT at 3-6 months, then optional CT at 18-24 mo.CT at 3-6 months, then CT at 18-24 m [facility]. Recommendations do not apply to lung cancer screening, patients with immunosuppression, or patients w ith known primary cancer. Dictated by: Marcy Alvarado M.D. on 11/18/2016 at 11:03 Approved by: Marcy Alvarado M.D. on 11/18/2016 at 11:13
--- NOTE | 2016-11-18 11:34 | PCM.PNCARD ---
Subjective Date of service Nov 18, 2016 Chief Complaint dyspnea History of Present Illness 71 yo obese M h/o untreated HTN admitted with dyspnea. Patient states that he has been healthy all his life and wasn't on any medications. About a month ago , he started having dyspnea on exertion that gradually progressed to point that he could lift heavy objects last week. He finally decided to come to the [facility] ER for evaluation. Denies chest pain, palpitations, weight gain, lightheadedness, syncope, fevers, chills, nausea, or vomiting. Since getting hospitalized yesterday, he got IV furosemide and had good urine output. He feels better today and is not on supplement oxygen anymore. Subjective: Patient feels good from breathing standpoint. He is able to walk down the hallway without much difficulty. He does have a dry cough today. Problem list: # HTN: diagnosed many years ago but not on medication # Obesity # Former smoker: quit 1981 or 1982 Exam Vital Signs Vital Sign - Last Date Time Temp Pulse Resp B/P Pulse Ox O2 Delivery O2 Flow Rate FiO2 11/18/16 10:28 36.6 76 20 115/78 96 CPAP 11/18/16 04:48 21 Intake and Output 11/17/16 11/17/16 11/18/16 Cumulative From/Thru 15:00 23:00 07:00 11/14/16 06:01 - 11/18/16 04:23 Intake Total 1337 ml 7332 ml Output Total 2075 ml 85556 ml Balance -738 ml -5743 ml Intake Oral 1337 ml 7332 ml Output Urine Total 2075 ml 02931 ml # Bowel Movements 1 General appearance: No apparent distress, well-nourished, pleasant, cooperative HEET: Normocephalic atraumatic, no scleral icterus, tongue midline, mucous membranes moist Neck: supple, no carotid bruits Cardiovascular: RRR, normal S1 and normal S2, 3/6 holosystolic murmur radiating to axilla, PMI nondisplaced, JVP 9 cm H20, jie peripheral edema b/l Respiratory: Good aeration, diffusely coarse but much improved from admission Abdomen: Soft, nontender, nondistended, + bowel sounds Neuro: Alert, no facial droop, tongue midline Lab and Diagnostics Result Diagram: 4/7/17 0620 4/7/17 0620 X-Rays, CTs and MRIs Echo 11/14/2016: 1) Mild concentric left ventricular hypertrophy with normal size, wall motion, and systolic function (EF 65-70%). 2) Mildly enlarged right ventricular with normal function. 3) Prolapse of the posterior mitral leaflet present. 4) Severe anteriorly directed mitral regurgitation present. 5) Mild to moderate tricuspid regurgitation present. 6) Severe pulmonary hypertension present, estimated systolic pulmonary pressure of 76mmHg. 7) Systemic hypertension present during the study (BP 157/98). 8) No prior Echo available for comparison. Assessment & Plan Assessment 71 yo obese M admitted with dyspnea from diastolic heart failure caused by severe mitral regurgitation. # Dyspnea: suspect dyspnea is due to severe mitral regurgitation caused by posterior mitral leaflet prolapse. LVEF is normal but patient does have severe pulmonary hypertension. He also has systemic hypertension, which is being well managed now. With good BP control and IV furosemide, patient has felt better and is off oxygen now. Our medium term goal would be to do mitral valve repair surgery to fix his symptomatic severe mitral regurgitation, for which he would meet criteria and has a class 1 indication. I educated the patient about his condition. Plan as discussed in great detail with the patient is as as below: - Continue furosemide 40mg daily. We may need to cut back to 20mg daily as outpatient. - Switch lisinopril from 10mg bid to losartan 25mg bid to avoid cough as patient could be having BRIONNA-I related cough. Goal BP < 120/80 - Patient needs ANALISA and R/LHC and carotid US as outpatient as part of mitral valve repair pre-op assessment - Patient interested in MV repair at or [facility] # RSV: noted on cultures. Suspect this is subacute as patient did have viral illness about 4 weeks ago. Recommend supportive care. # HTN: BP management as above Thank you for the interesting consultation. Cardiology will signoff at this time. Patient should f/u with cardiology on 12/01/2016 with BMP Problems: GI Prophylaxis: H2 mg VTE Prophylaxis: Sub-Q Enoxaparin VTE Mechanical Devices: Intermittant Pneumatic CD Resuscitation Status: CPR: Attempt Resuscitation Sugey Price MD Nov 18, 2016 11:34
--- NOTE | 2016-11-18 11:47 | PCM.DIMED ---
Discharge Instructions Date of Service Nov 18, 2016 Dates of Hospitalization Nov 14, 2016 at 10:20 Discharge Diagnosis Discharge Diagnosis Heart Failure due to severe mitral regurgitation, pulm hypertension, RSV infection, Lung Nodules Diet Low fat, Low Sodium, Heart Healthy Activity No restrictions Call your provider Fever or Chills, Shortness of breath Patient Instructions Please follow up with your PCP in 1 week Please follow up with Dr. Chopra on the 12/01/16 Restrict fluid intake. Avoid Salt in your food. Follow-up plan F/U with PCP in one week F/U with Dr. Chopra on 12/01/16: Patient will need ANALISA, PFT and R/LHC and carotid US as outpatient as part of mitral valve repair pre-op assessment F/U CT chect for lung nodules in 3 months PCP instruction: Please order Liver U/S as outpatient to follow up on hepatic finding from patient's Chest CT. F/U BMP in 6days, send to Dr. Chopra's clinic Swapna Carney DO Nov 18, 2016 11:47
[2016-11-18] MEDS ORDERED: METO25TA6 PO (12:04)
[2016-11-18] MEDS ORDERED: ASPI81TA3 PO (12:04)
[2016-11-18] MEDS ORDERED: LOSA25TA2 PO (12:04)
[2016-11-18] MEDS ORDERED: ATRV10T PO (12:04)
[2016-11-18] MEDS ORDERED: FLUT16SP NASAL (12:04)
[2016-11-18] MEDS ORDERED: BENZ100C8 PO (12:04)
[2016-11-18] MEDS ORDERED: ALBU18HF INH (12:05)
[2016-11-18] MEDS ORDERED: FURO40TA4 PO (12:11)
--- NOTE | 2016-11-18 13:03 | NUR ---
Discharge Note Pt denied any pain or discomfort today, up ad todd without difficulty. VSS, Tele SR in the 90's. Pt expressed understanding of all discharge instructions, medications/Rx, and follow up appts. Care Notes provided. Pt discharged home with all belongings accompanied by .
--- NOTE | 2016-11-18 16:24 | NUR ---
Social Work: Discharge Data: Pt is on day 4 of hospitalization. 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 Assessment: Pt who is independent at baseline. Plan: Pt discharged home via POV today, no SQL PROGRAMMER ANALYST needs. SILVIA Coats
--- NOTE | 2016-11-18 20:30 | PCM.DC.MED ---
Discharge Summary Date of Service Nov 18, 2016 Dates of Hospitalization Date of Hospital Admission Nov 14, 2016 at 10:20 Date of Discharge: Nov 18, 2016 Providers: Admitting Physician: Swapna Espinoza DO Primary Care Physician: Kaitlin Conteh PA-C Attending Physician: Swapna Espinoza DO Diagnosis at Time of Discharge Diagnosis at Time of Discharge Heart Failure due to severe mitral regurgitation, pulm hypertension, RSV infection, Lung Nodules Consultations Cardiology Procedures XRay, CTs & MRIs [facility] Diagnostic Imaging Department [place], [place] [id number] Patient Name: ANATOLY MIRELES MR#: [id number] Location: [facility] [place] Ordering Phys: MANNIE MELLO MD Date of Service: 11/14/16 0608 PROCEDURE: X-RAY CHEST, TWO VIEWS ([id number]) INDICATIONS: Cough/wheezing TECHNIQUE: 2 views of the chest were acquired. COMPARISON: None. FINDINGS: Surgical changes and devices: None. Lungs and pleura: No pleural effusions or pneumothorax. Bilateral interstitial prominence, lower lobe predominant, indeterminate for activity or chronicity but compatible with acute interstitial pneumonia as well as chronic interstitial lung disease. Mediastinum: Mediastinal contours are normal. There is slight prominence of the inferior right hilum which could represent lymphadenopathy. Heart size is normal. Bones and chest wall: No suspicious bony abnormalities. Soft tissues appear unremarkable. IMPRESSION: Bilateral interstitial pneumonia suspected in the absence of prior exams for determination of chronicity. Dictated by: Preston Bone M.D. on 11/14/2016 at 8:18 Approved by: Preston Bone M.D. on 11/14/2016 at 8:[address] [facility] Diagnostic [place] [address] Patient Name: ANATOLY MIRELES MR#: [id number] Location: [facility] [place] Ordering Phys: Swapna Espinoza DO Date of Service: 11/18/16 1044 PROCEDURE: CT CHEST WITHOUT CONTRAST ([id number]) INDICATIONS: wheezing, dyspnea TECHNIQUE: Noncontrast 5 mm thick sections acquired from the pulmonary apices to the posterior costophrenic angles. 7 mm thick coronal and sagittal MIP reformats were then acquired. For radiation dose reduction, the following was used: automated exposure control, adjustment of mA and/or kV according to patient size. COMPARISON: [facility], CR, XR CHEST 2VW, 11/17/2016, 20:09. FINDINGS: Image quality: Excellent. Lungs and pleura: No acute air space opacities mild dependent bibasilar atelectasis is present. 14 mm diameter nodular density within the left lung base posteriorly is present. 14 mm diameter subpleural nodule within the right lung base posteriorly.. No pleural effusions or pneumothorax. Central and peripheral airways are patent and normal in caliber. Mediastinum: Heart size is normal. No pericardial effusion. No mediastinal adenopathy by size criteria. Thoracic aorta and central pulmonary arteries are normal in size. Esophagus is normal in caliber. No hiatal hernia. Bones and chest wall: No suspicious bony lesions. No vertebral body compression fractures. No axillary or supraclavicular adenopathy by size criteria. Thyroid gland is within normal limits. Abdomen: Visualized portions of the upper abdomen demonstrates a 30 mm diameter low-density focus within the medial segment left hepatic lobe superiorly, with Hounsfield units of 40. IMPRESSION: 1. No acute process. 2. Bibasilar pulmonary nodules measuring 14 mm; followup is recommended as below. Secondary to location, these lesions would not be amenable to percutaneous biopsy. 3. Indeterminate low-density focus within the left hepatic lobe, which could be initially assessed with ultrasound, if clinically indicated. Fleischner Society criteria for SOLID lung nodule followup. Nodule size (mm)Low-risk patientHigh-risk patient<6 (single or multiple)No routine followup.Optional CT at 12 months. 6-8 (single or multiple)CT at 6-12 months, then optional CT at 18-24 mo.CT at 6-12 months, then CT at 18-24 months. >8 (single)CT, PET-CT, or biopsy at 3 months. Same as for low-risk pts. >8 (multiple)CT at 3-6 months, then optional CT at 18-24 mo.CT at 3-6 months, then CT at 18-24 months. Recommendations do not apply to lung cancer screening, patients with immunosuppression, or patients with known primary cancer. Dictated by: Marcy Alvarado M.D. on 11/18/2016 at 11:03 Approved by: Marcy Alvarado M.D. on 11/18/2016 at 11:13 Cardiac Echo Imp[address] [facility] Diagnostic [place] [address] Patient Name: ANATOLY MIRELES MR#: [id number] Location: [facility] [place] Ordering Phys: Swapna Espinoza DO Date of Service: 11/14/[address] [facility] [address] [place] [address] Echocardiogram Report Name: ANATOLY MIRELES BStudy Date : 11/14/2016 Height: 70 in Hospital Exam Location: [facility] Weight: 244 lb Gender: Male BSA: 2.3 m2 : 1945 Age: 71 yrs BP: 157/98 mmHg Reason For Study: Congestive Heart Failure Ordering Physician: HOSPITALIST SVHPerformed By: Vignesh Smith Referring Physician: SWAPNA ESPINOZA Interpretation Summary 1) Mild concentric left ventricular hypertrophy with normal size, wall motion, and systolic function (EF 65-70%). 2) Mildly enlarged right ventricular with normal function. 3) Prolapse of the posterior mitral leaflet present. 4) Severe anteriorly directed mitral regurgitation present. 5) Mild to moderate tricuspid regurgitation present. 6) Severe pulmonary hypertension present, estimated systolic pulmonary pressure of 76mmHg. 7) Systemic hypertension present during the study (BP 157/98). 8) No prior Echo available for comparison. Procedure: A two-dimensional transthoracic echocardiogram with color flow and Doppler was performed. The study quality was technically adequate. There is no prior echocardiogram noted for this patient. The patient was in normal sinus rhythm during the exam. Left Ventricle: The left ventricle is normal in size. There is mild concentric left ventricular hypertrophy. The ejection fraction is estimated to be 65-70%. Left ventricular systolic function is normal. Left ventricular wall motion is normal. Assessment of diastolic parameters suggests a pseudonormalization pattern, consistent with elevated filling pressures. Right Ventricle: The right ventricle is mildly dilated. The right ventricular systolic function is normal. Atria: There is moderate biatrial enlargement. The interatrial septum is intact with no evidence for an atrial septal defect. Mitral Valve: Anterior MV leaflet is moderately calcified. Prolapse of the middle scallop of the posterior mitral leaflet. There is no mitral valve stenosis. There is severe mitral regurgitation. The mitral regurgitant jet is anteriorly directed, which is consistent with posterior leaflet pathology. Flow reversal noted in pulmonary veins consistent with significant mitral regurgitation. Aortic Valve: The aortic valve is normal in structure and function. There is no aortic valve stenosis. No aortic regurgitation is present. Tricuspid Valve: The tricuspid valve leaflets are thickened and/or calcified, but open well. There is mild to moderate tricuspid regurgitation. The right ventricular systolic pressure is estimated at 76 mmHg assuming a right atrial pressure of 8 mm Hg. Pulmonic Valve: The pulmonic valve is not well seen, but is grossly normal. There is a trace or physiologic amount of pulmonic regurgitation. Great Vessels: The aortic root is normal size. The dimensions of the ascending aorta are normal. The pulmonary artery is normal size. The IVC is dilated (diameter is greater than 2.1 cm) yet it collapses greater than 50% with a sniff. This suggests a right atrial pressure of 8 mm Hg. Pericardium/ Pleura There is no pericardial effusion. There is no pleural effusion. MMode/2D Measurements & Calculations LVIDd: 5.6 cm RA long axis LVOT diam LVIDs: 3.9 cm LA A2 area: 26.3 cm FS: 30.7 % LA A4 area: 29.7 cm RA area AoV Opening EPSS: 0.64 cm LA length (vol): 8.1 cm IVSd: 1.1 cm LA vol: 82.3 ml : 25.1 cm Ao root diam LVPWd: 1.2 cm LA vol index RA vol : 85.5 ml asc Aorta RA Diam: 3.2 cm IVC diam: 2.8 cm : 37.6 mm2 LV chan. diameter/BSA LV sys. diameter/BSA RVD1 (basal) RVD2 (mid) (cm/m^2): 2.5 (cm/m^2): 1.7 : 4.1 cm TAPSE: 2.2 cm Doppler Measurements & Calculations Ao V2 max MV E max jamie MV E/A: 2.0 TR max jamie : 110.2 cm/sec : 162.3 cm/sec Med Peak E' Jamie : 412.6 cm/sec Ao max PG MV A max jamie TR max PG : 4.9 mmHg : 80.6 cm/sec E/E' med: 27.0 : 68.1 mmHg Ao mean PG MV P1/2t: 40.0 msecLat Peak E' Jamie PA V2 max MVA(VTI): 1.8 cm : 66.3 cm/sec LVOT Max Jamie E/E' lat: 20.1 PA mean PG : 101.7 cm/sec MR ERO: 0.32 cm2 E/e' average: 23.6 : 0.96 mmHg PB(I,D): 3.3 cm PA Accel Time sev ratio : 0.07 sec MV V2 mean MV P1/2t max jamie Ao V2 mean LV V1 max PG : 105.1 cm/sec : 77.0 cm/sec MV mean PG Ao V2 VTI: 18.5 cm LV V1 VTI MVA(P1/2t): 5.5 cm2 : 18.1 cm MV V2 VTI: 33.9 cm PB(V,D): 3.1 cm2 MR flow rate PA V2 mean PB indexed to BSA : 46.4 cm/sec (cm^2/m^2): 1.5 : 152.8 cm3/sec MR PISA radius Reading Physician:05:06 PM Brief History 71 yo obese M h/o untreated HTN admitted with dyspnea. Patient states that he has been healthy all his life and wasn't on any medications. About a month ago , he started having dyspnea on exertion that gradually progressed to point that he could lift heavy objects last week. He finally decided to come to the [facility] ER for evaluation. Denies chest pain, palpitations, weight gain, lightheadedness, syncope, fevers, chills, nausea, or vomiting. Since getting hospitalized yesterday, he got IV furosemide and had good urine output. He feels better today and is not on supplement oxygen anymore. Hospital Course This is a 71-year-old male without any pertinent unremarkable past medical history currently pressing thing with hypoxia and dyspnea likely secondary to heart failure versus pulmonary hypertension versus chronic interstitial pneumonitis versus pneumonia. He also has RSV infection getting treated appropriately with steroids and supportive care. Acute diagnosis #1 hypoxia secondary to heart failure secondary to severe mitral regurgitation, pulmonary hypertension -- Telemonitoring -- trend cardiac enzymes: Negative , ACS ruled out - Echocardiogram: Re a d by Dr. Sanjeev Oliver showed concern for severe pulmonary hypertension, severe mitral regurgitation -- Discussed case with cardiology: Cardiology has seen the patient and encouraged aggressive diuresis to 2 L daily: We appreciate the recommendations -- Morphine, oxygen, nitroglycerin bid paste every 6 hours -- Started patient on lisinopril, metoprolol, aspirin: Cardiology recommends the patient states on 10 mg lisinopril by mouth twice a day -- A.m. lipid panel within normal, A1c= 5.2 -- Continued home CPAP -- Patient was initially diuresed with Lasix 40 mg IV twice a day to goal of of fluid 2 L per day. He was started on Lasix 40 mg by mouth on the day of discharge -- Cardiology Recs"- Diurese to be net negative 1L. Switch from IV furosemide to furosemide 40mg daily tomorrow - Switch lisinopril from 15mg daily to 10mg bid for BP control. Goal BP < 120/ 80 - Patient needs ANALISA and R/LHC and carotid US as outpatient as part of mitral valve repair pre-op assessment" Acute diagnosis #2 concern for interstitial pneumonitis -- Solu-Medrol 40 mg twice a day: Discontinued on 11/17/16, patient is given Tessalon Perles, Robitussin-AC for cough -- Albuterol, DuoNeb treatments -- Urine strep, urine Legionella tests are ordered: Negative -- Respiratory panel positive for RSV: Continue supportive care Chronic diagnosis: HEIDI continue home CPAP GERD: H2 mg Exam Vital Signs (Last) Date Time Temp Pulse Resp B/P Pulse Ox O2 Delivery O2 Flow Rate FiO2 11/18/16 10:28 36.6 76 20 115/78 96 CPAP 11/18/16 04:48 21 Exam Gen.: No acute distress HEENT: Large neck Neck: Negative for JVD or carotid bruits Heart mitral murmur with radiation to axilla , regular rate and rhythm Abdomen obese, nontender nondistended Extremities negative for edema psych negative anxiety Neuro no focal deficits Test 11/14/16 07:20 11/14/16 09:20 11/14/16 19:25 11/15/16 05:05 Magnesium Level 2.0mg/dL (1.6-2.6) Pro-B-Type Natriuretic Peptide 1157pg/mL (0-376) Procalcitonin 0.07ng/mL (0.00-0.08) Hold Harrington Top Tube Received (Received) Urine Color Yellow (YELLOW) Urine Appearance Clear (CLEAR,HAZY) Urine pH 6.0 (5.0-8.0) Urine Specific [place] 1.015 (1.003-1.035) Urine Protein Negativemg/dL (NEG,TRACE) Urine Glucose (UA) Negativemg/dL (NEGATIVE) Urine Ketones Negativemg/dL (NEGATIVE) Urine Occult Blood Trace (NEGATIVE) Urine Nitrite Negative (NEGATIVE) Urine Bilirubin Negative (NEGATIVE) Urine Urobilinogen Normalmg/dL (NORMAL) Urine Leukocyte Esterase Negative (NEGATIVE) Urine RBC 3-10/hpf (0-2) Urine WBC 0-5/hpf (0-5) Urine Epithelial Cells Occasional/hpf (NONE-MOD) Urine Crystals None seen (NONE SEEN) Urine Bacteria None/hpf (NONE-FEW) Urine Hyaline Casts None/lpf (NONE) Urine Granular Casts None seen (NONE SEEN) Urine Waxy Casts None seen (NONE SEEN) Urine Red Blood Cell Casts None seen (NONE SEEN) Urine White Blood Cell Casts None seen (NONE SEEN) Urine Mucus None seen (None Seen) Urine Trichomonas None seen (NONE SEEN) Urine Yeast None (NONE SEEN) Urinalysis Comment None Urine Culture Reflexed Not indicated Total Creatine Kinase 93U/L (21-232) Creatine Kinase MB 1.8ng/mL (0.0-10.4) Creatine Kinase MB % % (0.0-5.0) Troponin T < 0.010ug/L (0.0-0.011) Urine Legionella pneumophilia Ag Negative (Negative) Test 11/15/16 06:05 11/18/16 06:20 Hemoglobin A1c 5.4% (4.8-5.6) Total Bilirubin 0.7mg/dL (0.0-1.2) Aspartate Amino Transf (AST/SGOT) 13U/L (0-50) Alanine Aminotransferase (ALT/SGPT) 18U/L (0-44) Alkaline Phosphatase 60U/L (25-160) Total Protein 6.7g/dL (6.4-8.4) Albumin 4.3g/dL (3.4-5.0) Triglycerides Level 85mg/dL (0-149) Cholesterol Level 160mg/dL (100-199) LDL Cholesterol, Calculated 103.000mg/dL (0-99) VLDL Cholesterol 17.000mg/dL HDL Cholesterol 40mg/dL (>39) Cholesterol/HDL Ratio 4.00 (0.0-4.4) White Blood Count 13.2th/mm3 (3.8-10.1) Red Blood Count 4.85mil/mm3 (4.40-5.80) Hemoglobin 14.7g/dL (13.8-17.2) Hematocrit 44.9% (41.0-50.0) Mean Corpuscular Volume 92.6fL (81-100) Mean Corpuscular Hemoglobin 30.3pg (27.0-35.0) Mean Corpuscular Hemoglobin Concent 32.7% (32.0-37.0) Red Cell Distribution Width 13.5% (12.3-15.4) Platelet Count 256bil/L (150-400) Neutrophils (%) (Auto) 67.5% (40-74) Lymphocytes (%) (Auto) 19.1% (14-46) Monocytes (%) (Auto) 12.0% (4-12) Eosinophils (%) (Auto) 0.8% (0-5) Basophils (%) (Auto) 0.2% (0-3) Sodium Level 142mEq/L (134-144) Potassium Level 4.4mEq/L (3.5-5.2) Chloride Level 102mEq/L (97-108) Carbon Dioxide Level 23mmol/L (18-29) Blood Urea Nitrogen 31mg/dL (8-27) Creatinine 0.85mg/dL (0.76-1.27) Estimat Glomerular Filtration Rate 95mL/min (>59) Glucose Level 95mg/dL (60-99) Calcium Level 10.3mg/dL (8.5-10.1) Discharge Medications Discharge Medications Aspirin Chew (Aspirin Chew) 81 Mg Chew 81 MG PO DAILY Prescribed by: SWAPNA ESPINOZA DO Atorvastatin (Lipitor) 10 Mg Tab 10 MG PO HS Prescribed by: SWAPNA ESPINOZA DO Biotin (Biotin) 10 Mg Tablet 10 MG PO DAILY (Reported) Cholecalciferol (Vitamin D3) (Vitamin D3) 3,000 Unit Tablet 3,000 UNIT PO DAILY (Reported) Fluticasone Propionate (Fluticasone Propionate Nasal) 16 Gm Norton.susp 1 SPRAY NASAL BID Prescribed by: SWAPNA ESPINOZA DO Furosemide (Furosemide) 40 Mg Tablet 40 MG PO DAILY Prescribed by: SWAPNA ESPINOZA DO Losartan Potassium (Cozaar) 25 Mg Tablet 25 MG PO BID Prescribed by: SWAPNA ESPINOZA DO Metoprolol Tartrate (Metoprolol Tartrate) 25 Mg Tablet 12.5 MG PO BID Prescribed by: SWAPNA ESPINOZA DO Multivitamin (Multivitamins) 1 Each Capsule 1 EACH PO DAILY (Reported) Blum-3 Fatty Acids/Fish Oil (Blum 3 1,000 mg Softgel) 1 Each Capsule 1 EACH PO DAILY (Reported) Ubidecarenone (Coenzyme Q10) 100 Mg Tablet 100 MG PO DAILY (Reported) Vitamin E (Dl,Tocopheryl Acet) (Vitamin E) 1,000 Unit Capsule 1,000 UNIT PO DAILY (Reported) As needed Albuterol Sulfate (Ventolin HFA Inhaler) 200 Puff/18 Gm Inhaler 1 PUFF INH Q4 PRN PRN For Wheezing Prescribed by: SWAPNA ESPINOZA DO Benzonatate (Benzonatate) 100 Mg Capsule 100 MG PO TID PRN PRN For Cough Prescribed by: SWAPNA ESPINOZA DO Followup Plan Follow-up plan F/U with PCP in one week F/U with Dr. Price on 12/01/16: Patient will need ANALISA, PFT and R/LHC and carotid US as outpatient as part of mitral valve repair pre-op assessment F/U CT chect for lung nodules in 3 months PCP instruction: Please order Liver U/S as outpatient to follow up on hepatic finding from patient's Chest CT. F/U BMP in 6days, send to Dr. Price's clinic Discharge Diet: Low fat, Low Sodium, Heart Healthy Discharge Activity: No restrictions Patient Instructions Please follow up with your PCP in 1 week Please follow up with Dr. Price on the 12/01/16 Restrict fluid intake. Avoid Salt in your food. Swapna Espinoza DO Nov 18, 2016 20:30
[2016-12-13] MEDS ORDERED: VIT1TABL83 PO (10:29)
[2016-12-13] MEDS ORDERED: KETO120S3 TP (10:29)
== END 2016-11-18 13:04 | disposition home or self-care (01) | DRG 291 ==
LOC: SED 05:56 → MPC 10:20
PROVIDERS: ADMIT Family Medicine; ATTEND Family Medicine
DX: I50.9 Heart failure, unspecified (principal); J18.9 Pneumonia, unspecified organism; I27.2 Other secondary pulmonary hypertension; Z87.891 Personal history of nicotine dependence; R09.02 Hypoxemia; G47.33 Obstructive sleep apnea (adult) (pediatric); K21.9 Gastro-esophageal reflux disease without esophagitis; E66.09 Other obesity due to excess calories; I34.0 Nonrheumatic mitral (valve) insufficiency; B97.4 Respiratory syncytial virus as the cause of diseases classified elsewhere; R91.8 Other nonspecific abnormal finding of lung field; J84.89 Other specified interstitial pulmonary diseases

== ENCOUNTER 2016-12-14 01:15 | Day surgery (SDC) | payer MEDICARE, OTHER ==
[~2016-12-14] VITALS: Ht 177.8 cm; Wt 107.0 kg
[2016-12-14] VITALS (25 sets, daily range): BP systolic 116–140; BP diastolic 75–115; PULSE 73–91; RESP 16–30; O2SAT 95–98
[~2016-12-14 01:15] MED LIST changes: +ALBU18HF INH; +ATRV10T PO; +BENZ100C8 PO; +BIOT10TA PO; -CA C1TAB28 PO; -CALC-27 PO; +CHOL3000 PO; -COCO1000 PO; -FLAX100010 PO; +FURO40TA4 PO; +KETO120S3 TP; +LOSA25TA2 PO; +METO25TA6 PO; -MULT-36 PO; +MULT1CAP33 PO; -OMEG1CAP56 PO; +VIT1TABL83 PO; -VITA1CAP PO; -VITA400C64 PO
[2016-12-14] MEDS ORDERED: Heparin 1,000 Units/500 mL NS Premix IV ONE (12:25)
[2016-12-14] MEDS ORDERED: Heparin 5,000 Units/500 mL NS Premix IV ONE (12:26)
[2016-12-14] MEDS ORDERED: Nitroglycerin 50,000 mcg/250 mL D5W Premix IV ONE (12:26)
[2016-12-14] MEDS ORDERED: Heparin 1,000 Unit/mL 10 mL Inj ONE (12:26)
[2016-12-14 12:47] LABS: BASOPHILS % (AUTO) 0.2 % (0-3); EOSINOPHILS % (AUTO) 2.8 % (0-5); MONOCYTES % (AUTO) 6.3 % (4-12); Mean Corpuscular Hemoglobin 29.9 pg (27.0-35.0); Mean Corpuscular Volume 90.1 fL (81-100); NEUTROPHILS % (AUTO) 66.4 % (40-74); Platelet Count 223 bil/L (150-400)
[2016-12-14 13:03] LABS: INR 0.97 ratio
[2016-12-14] MEDS ORDERED: fentaNYL-PF 50 mCg/mL 2 mL Inj ONE (14:32)
[2016-12-14] MEDS ORDERED: Verapamil 2.5 mg/mL 2 mL Inj ONE (15:18)
--- NOTE | 2016-12-14 15:39 | NUR ---
[facility] Admit patient to [facility] bed 1 at 1230 for ANALISA to be followed by a heart cath. No family at bedside because went to the ED. HL x 2 placed and labs obtained. Consent confirmed. History and medications reviewed. notified that patient had run out of several medications the week prior and had not renewed his Rx. Pre-procedure teaching done and questions answered. Procedure complete without complications. 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 Report to [facility] labor [employer] [facility] staff
[2016-12-14] MEDS ORDERED: fentaNYL PF 50 mCg/mL 5 mL Inj IV ONE (15:50)
--- NOTE | 2016-12-14 16:18 | PCM.CVCATH ---
Cardiac Cath Report Date of Service December 14, 2016 Primary Indication Severe symptomatic mitral regurgitation Procedure coronary angiography, left heart cath, and right heart cath Vascular Access Right radial artery using 5 Fr slender sheath, closure with TR band. Right internal jugular vein, closure with manual hold. Diagnostic Catheters Left main: JL3.5, 5Fr after being unsuccessful with Lipscomb 4.5, 5 Fr RCA: JR4, 5Fr after being unsuccessful with Lipscomb 4.5, 5 Fr Procedure Details Coronary angiography details: The patient was brought to the cardiac catheterization lab in the fasting state. Patient was laid supine on the cardiac catheterization table and the right neck and right forearm were prepped and draped in the usual sterile fashion. One percent Xylocaine was infiltrated over the right internal jugular vein. Vascular access was then achieved under ultrasound guidance and confirmed with fluoroscopy. Grubbs was completed through the sheath. Next, one percent xylocaine was infiltrated over the right radial artery and vascular access was then achieved using ultrasound guidance. Guide wire was used to advance the catheter through the sheath and up into aortic sinuses. Due to unusual anatomy of the aortic arch, tiger 4.5 catheter could not engage the left or the right coronary arteries. Success was obtained with JL3.5 for left coronary artery and JR4 for right coronary artery. After coronary angiography was completed, guide wire was advanced through the catheter ahead of the tip of the catheter and the guide wire along with the catheter were pulled together out of the sheath. Medications/Fluoro Time Medications administered: 1.Fentanyl: 50 mcg IV 2. Midazolam: 1 mg IV 3. Heparin: 6000 units IV 4. Nitroglycerin: 550 mcg IA 5. Verapamil: 1 mg IA Fluoroscopy Time: 13.3 minutes, 1699 mGy Contrast (Isovue): 90 mls Blood loss: 10 mls Findings 1) Coronary angiography: Right dominance a. Left main is angiographically normal b. LAD is normal caliber giving rise to large caliber diagonal artery. Only mild luminal irregularities present in the LAD and the diagonal artery. c. Ramus intermedius is a medium caliber artery with no angiographic disease. d. LCx is normal caliber giving rise to large caliber 2nd obtuse marginal artery (OM). The proximal OM2 has 10-20% stenosis. No significant abnormalities elsewhere in the LCx or OM branches. e. RCA is normal caliber vessel with minimal luminal irregularities. 2) Left Heart catheterization: a. LVEDP is mildly elevated at 19 mmHg. b. No significant transaortic gradient on catheter pull-back. 3) Right heart cath: * RA Mean Pressure 0 mmHg * RV Pressure 73/-5 (RVED 5 mmHg) * PA Pressure 74/21 (mean 42 mmHg) * PCWP 25 mmHg * PA saturation: 64% * Arterial saturation: 94% * Flori Cardiac Output 5.21 L/min / Flori Cardiac Index 2.35 L/min/m2 Complications There were no periprocedural complications identified. Summary 1) Mild luminal irregularities in the LAD, LCx, and RCA with maximal stenosis of 20% in the proximal second obtuse marginal artery. No significant stenosis that require revascularization. 2) Right heart cath and left heart cath show normal right sided filling pressures but elevated pulmonary artery pressures (mean 42mmHg) and elevated left sided filling pressures (LVEDP 19mmHg). Normal cardiac output. Recommendations 1) Medical management of coronary artery disease. 2) Proceed with mitral valve repair surgery. copies to: Brando Breaux Bhrigu R MD December 14, 2016 16:18
[2016-12-14] MEDS ORDERED: 0.9% Sodium Chloride 1,000 ML IV SCH (16:25)
[2016-12-14] MEDS ORDERED: Benzoc-Butamben-Tetraca Spray 20 Gm Spray TOPICAL ONE (16:35)
[2016-12-14] MEDS ORDERED: ASPI-973 PO (16:44)
--- NOTE | 2016-12-14 16:52 | DRSVH ---
[facility] [address] [address] Echocardiogram Report Name: ANATOLY MIRELES BStudy Date : 12/14/2016 Height: 70 in Hospital Exam Location: [facility] Weight: 236 lb Gender: Male BSA: 2.2 m2 : 1945 Age: 71 yrs BP: 121/89 mmHg Reason For Study: Mitral Valve- Regurgitation Ordering Physician: Performed By: Vignesh Smith Interpretation Summary ANALISA to assess mitral valve and the associated mitral regurgitation: 1) Normal left ventricular size, wall motion, and systolic function (EF 65- 70%). 2) Normal right ventricular size and function. 3) Prolapse of the middle scallop of the posterior mitral leaflet. 4) Severe anteriorly directed mitral regurgitation, with systolic flow reversal in pulmonary veins. 5) No thrombus in the left atrium or in the left atrial appendage. Procedure: A 2D transesophageal echocardiogram with spectral and color flow Doppler was performed. Informed consent for Transesophageal Echocardiogram, and use of a contrast agent as needed, was obtained prior to the procedure. The patient was brought to the [facility] in a fasting state. An intravenous line was placed. A topical anesthetic agent was used for oropharangeal anesthesia. A bite block was inserted. IV concious sedation was administered using versed and fentanyl. The patient was in normal sinus rhythm during the exam. There were no complications. Left Ventricle: The left ventricle is grossly normal size. The left ventricular ejection fraction is normal. The ejection fraction is estimated to be 65-70%. Atria: No left atrial mass or thrombus visualized. No thrombus is detected in the left atrial appendage. The interatrial septum is intact with no evidence for an atrial septal defect. Mitral Valve: Prolapse of the middle scallop of the posterior mitral leaflet. There is severe mitral regurgitation. The mitral regurgitant jet is anteriorly directed, which is consistent with posterior leaflet pathology. Flow reversal noted in pulmonary veins consistent with significant mitral regurgitation. There is an eccentric jet of mitral regurgitation that is directed anteriorly. Aortic Valve: The aortic valve is normal in structure and function. Pulmonic Valve: The pulmonic valve is not well seen, but is grossly normal. Great Vessels: The aortic root is normal size. Pericardium/ Pleura: There is no pericardial effusion. Reading Physician:04:52 PM
[2016-12-14] MEDS ORDERED: METO25TA6 PO (17:00)
[2016-12-14] MEDS ORDERED: ALBU18HF INH (17:00)
[2016-12-14] MEDS ORDERED: FURO40TA4 PO (17:00)
[2016-12-14] MEDS ORDERED: ATOR10TA66 PO (17:00)
[2016-12-14] MEDS ORDERED: BENZ100C8 PO (17:00)
[2016-12-14] MEDS ORDERED: LOSA25TA21 PO (17:00)
--- NOTE | 2016-12-14 17:03 | NUR ---
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 TR band in place. Right IJ without bleeding or hematoma. Dressing remained clean/dry and intact. Tr removal started at 1615 and complete at 1645 without bleeding or hematoma. Radial pulse present. Patient denies pain. Prior to discharge patient ambulatory, taking PO and void. Instructions reviewed with patient and , written information given and questions answered. Home with at 1700. Addendum: 12/14/16 at 1908 by TIRSO CUNNINGHAM RN Error, TR band removal was started at 1815, not 1615 and complete at 1845, not 1645. patient home at 1900, not 1700.
== END 2016-12-14 23:59 | disposition home or self-care (01) ==
LOC: SOUO 01:15
PROVIDERS: ATTEND Internal Medicine Cardiovascular Disease
DX: Z01.810 Encounter for preprocedural cardiovascular examination (principal); I34.0 Nonrheumatic mitral (valve) insufficiency; I34.1 Nonrheumatic mitral (valve) prolapse; I25.10 Atherosclerotic heart disease of native coronary artery without angina pectoris; I10 Essential (primary) hypertension; E66.9 Obesity, unspecified; G47.33 Obstructive sleep apnea (adult) (pediatric); E78.5 Hyperlipidemia, unspecified; I27.2 Other secondary pulmonary hypertension; Z87.891 Personal history of nicotine dependence
CPT/HCPCS: 36415; 80048; 85025; 85610; 93460; 99152; 99153; C1769; C1887; C1894; C8925; J1644; J2250; J3010; J7030; Q9967